=== PATIENT | female | born 1960 | race African-American/Black ===

== ENCOUNTER 2016-10-28 02:16 | Inpatient (IN) | payer OTHER ==
[~2016-10-28] VITALS: Ht 167.6 cm; Wt 116.1 kg
[~2016-10-28 02:16] MED LIST: AMITIZA24 MC1 PO; ASPIRIN EC81 M1 PO; CRESTOR40 M2 PO; DIOVAN320 M1 PO; FERROUS SULFAT325 M3 PO; FUROSEMIDE40 M1 PO; HYDRALAZINE HCL50 M1 PO; LABETALOL HCL300 M1 PO; LINZESS290 MC1 PO; METFORMIN HCL500 M2 PO; NOVOLOG FL100 UNIT/1 SC; SPIRONOLACTONE1 EACH PO; TRESIBA FL100 UNIT/1 SC; VITAMIN B122500 MC1; VITAMIN D31000 UNI1 PO
[2016-10-28] MEDS ORDERED: CARDURA1 M1 PO (06:58)
[2016-10-28] MEDS ORDERED: METOLAZONE5 M1 PO (07:00)
--- NOTE | 2016-10-28 07:13 | Operative Report ---
Operative/Inv Procedure Report Surgery Date: 10/28/16 Name of Procedure: 1. C3/4 ACDF with synthes interbody ZeroP PEEK cage, 16mm screws, autograft, allograft 2. exploration prior C4-7 anterior fusion Pre-Operative Diagnosis: C3/4 HNP with stenosis, myelopathy, prior C4-7 ant fusion Post-Operative Diagnosis: same Estimated Blood Loss: 75cc Surgeon/Welt Drawer: NASIMA CANNON,Poli Franklin MD Anesthesia: general endotracheal tube Monitors: neurophysiologic monitoring IV Fluids: 1.8L replaced with crystalloid Implants: synthes Urine Output: 205cc via gonsalves Drains: small CRISTIN Specimens: C3/4 disc material Complications: none Condition: stable Operative Indication: Pt 55yo female s/p prior work injury with C4-7 anterior cervical decompression and fusion several years ago now with progressive C3/4 HNP and recurrent central stenosis with clinical symptoms of recurrent myelopathy now presents for surgical discectomy and fusion of the adjacent symptomatic level. Operative/Procedure Note Note: Patient was taken the operating room. After appropriate patient identification, neurophysiologic monitoring leads were placed and baseline recordings were obtained. The patient underwent an fiberoptic intubation with a Nims tube with the neck in a neutral position. Following intubation. Monitoring was stable. The patient was positioned supine on the operating table with the neck gently extended on a donut and the shoulders retracted downward with tape. Following positioning, monitoring was rechecked and noted to be stable. Patient was given 1.5 g of IV vanco in preoperative prophylaxis. A Gonsalves catheter was sterilely inserted. DVT prophylaxis was utilized throughout the case. The right ventral neck was widely prepped and draped in usual sterile fashion using povoiodine solution. Previous approach was via the left neck and both vocal cords were noted to be equally mobile on preop laryngoscopy. A transverse linear skin incision was marked beginning in the midline and extending to the left a proximally 3 cm. The C-arm fluoroscope was sterilely draped in the field and we confirmed that the planned incision was overlying the C3/4 interspace. The skin was infiltrated with local anesthetic. Skin incision was made with a 10 blade knife dissection was carried down through the subcutaneous tissue with the Bovie to the platysma muscle. The platysma was elevated and divided. Subplatysmal planes were created rostrally and caudally to facilitate tissue mobilization. A large traversing vein was doubly ligated and divided. The medial aspect of the sternocleidomastoid muscle was identified. The overlying fascia was incised in a rostral caudal fashion. A combination of digital and blunt dissection was used medial to the sternocleidomastoid and lateral to the trachea and esophagus down to the prevertebral fascia. The carotid sheath was identified to be quite deep overlying the anterior spine and was retracted laterally under hand-held retractor. The prevertebral fascia was incised and swept off the ventral aspect of the vertebral bodies with a peanut. The previous fusion plate was cleared and inspected. The fusion was explored and noted to be solid. We verified the immediately more rostral disc space was C3/4 and the disc space was marked with the Bovie and the longus coli muscles were reflected bilaterally. Self- retaining retractors were placed beneath the muscle. Once the retractors were in position, the endotracheal cuff was deflated and slowly reinflated against the retractors to minimize tracheal wall pressure. An annulotomy of C3/4 was performed with a 15 blade knife and a superficial discectomy was done with small straight and angled curettes and pituitary rongeurs. The osteophytes were removed with a Leksell rongeur and the bone saved for subsequent arthrodesis to the back table. Murdock pins were placed in the midpoint of the C3 and C4 vertebral bodies in the disc space was gently distracted under direct and fluoroscopic guidance. Following distraction of the disc space, neurophysiologic monitoring was rechecked and noted to be stable. Discectomy at C3/4 was completed under the scope using combination of small straight and angled curettes and pituitary rongeurs. A large central disc herniation with significant compression of the thecal sac was appreciated with fragment of disc extending under the PLL. The posterior longitudinal ligament was sequentially divided and removed with a 2mm Kerrison punch until an excellent decompression of the underlying thecal sac was accomplished from proximal foramen to proximal foramen. Once removal of all the disc material, the dural sac appeared nicely decompressed. Once the decompression was completed, meticulous hemostasis was achieved using Surgifoam in the epidural space and a cottonoid too. All cartilaginous endplates were removed from C3 and C4 using combination of curettes and the Midas Zan drill to prepare them for arthrodesis. Following the decompression, neurophysiologic monitoring was rechecked and noted to be stable. We then proceeded to arthrodesis and placement of the instrumentation. After appropriate trials, a 8 mm Synthes peek zero profile cage was selected and filled with demineralized bone matrix and morselized autograft from the osteophytectomy and gently tamped the cage into the C3/4 disc space under direct and fluoroscopic guidance and countersunk one or two mm. Once the cage was in position, we proceeded with placement of the screws. The Murdock retractor was released compressing the cage between the respective vertebral bodies in the Murdock pins were removed. A small amount of bone bleeding was easily controlled with bone wax. 16 mm screws were placed in the C3 and C4 vertebral body after piercing the bone with an awl and placing self drilling, self tapping screws. The screws were finally tightened applying the locking mechanism at each location. Final x-rays were obtained and saved and showed excellent position of the interbody cage and instrumentation. The retractors were removed. Hand-held retractors were then placed back into the wound which was inspected and meticulous hemostasis is achieved prior to wound closure. A small CRISTIN drain was placed into the wound and secured to the skin with a 2-0 nylon suture. The platysma muscle was reapproximated with interrupted 3-0 Vicryl suture. Skin was closed in layers with interrupted 3-0 Vicryl suture in the dermis and a running 4-0 Vicryl subcutaneous stitch in the skin. The wound was cleaned and dried. Steri-Strips and a sterile occlusive dressing was placed. The patient was placed in a cervical collar. She was awakened in the operating room, extubated, and taken to PACU in stable condition. She was noted to be moving all 4 extremities at the completion of the case. All sponge needle and instrument counts are correct at the completion of procedure 3. Neurophysiologic monitoring was stable throughout the case. Findings: large central C3/4 HNP with compression of cord Discharge Disposition: PACU
--- NOTE | 2016-10-28 11:42 | Operative Report ---
Operative/Inv Procedure Report Surgery Date: 10/28/16 Name of Procedure: C3 4 anterior cervical discectomy and fusion C4 5 5 6 exploration of fusion Placement of intervertebral biomechanical device C3 4 Placement of anterior instrumentation Synthes zero-p Use of autograft use of allograft, use of fluoroscope, use of microscope Pre-Operative Diagnosis: Cervical myelopathy Post-Operative Diagnosis: Same Estimated Blood Loss: 50ml to 100ml Surgeon/Senior [id number] Developer: pete DEL REAL MD,DALLAS Castro Anesthesia: general endotracheal tube Operative/Procedure Note Note: After successful administration of general endotracheal anesthesia all lines tubes and monitors were placed by the anesthesia team the patient positioned supine with head gently extended arms tucked at her sides. The planned skin incision the right anterior neck using the fluoroscope in one of her neck creases. The patient was then prepped and draped in usual standard fashion, a # 15 blade was used to incise the right anterior neck this was taken down through the platysma with Bovie electrocautery. A large traversing vein was identified and isolated and tied off and then divided. We then dissected down lateral to the trachea and esophagus medial to the carotid sheath to palpate the old plate. We dissected cranially exposing the body of C3 the superior portion body of C4, we elevated the longus coli bilaterally. We inspected the old fusion teacher was solid and tried to place a Butte pin into the spacer however was difficult to place to the Butte pin through the locking mechanism hole. The [place]te pins placed the body of C3 to provide gentle in-line distraction. We then went into the disc space with a #15 blade performed a thorough discectomy using pituitaries curettes and Kerrison punches. We brought the microscope into the deep dissection in elevating the PLL, the PLL was elevated with a nerve hook and resected with Kerrison punch. The thecal sac was thoroughly decompressed. We used a high-speed drill to drill off any osteophytes saving the bone for autograft, the bony cartilage endplates were gently removed. After satisfied with the bony and ligamentous decompression we trialed an 8 mm space this this was the appropriate size. The space was placed, after was packed with autograft and D was bone matrix putty. An awl was used to all holes in the bodies of C3 and C4 and 16 mm screws were set, and locked with the locking mechanism. We then copiously irrigated with bacitracin irrigation remove the Butte pins waxed all the bone wax. Meticulous hemostasis was obtained. The wound was closed after a drain was left. A dry sterile dressing was applied the patient was taken to recovery room in stable condition. All needle counts sponge and instruments were correct.
[2016-10-28 12:43] LABS: ABSOLUTE BASOPHIL COUNT 0 /CUMM (0.0-0.2); ABSOLUTE EOSINOPHIL COUNT 0 /CUMM (0.0-0.7); ABSOLUTE GRANULOCYTE CT 6.2 /CUMM (1.4-6.5); ABSOLUTE LYMPH COUNT 0.8 /CUMM (1.2-3.4); ABSOLUTE MONOCYTE COUNT 0.1 /CUMM (0.10-0.60); BASOPHIL % 0.3 % (0.0-2.0); EOSINOPHIL % 0.1 % (0-5); HEMATOCRIT 29.1 % (37-47); MEAN CORPUSCULAR HGB 23.6 PG (27.0-31.0); MEAN CORPUSCULAR HGB CONC 32.4 G/DL (33.0-37.0); MEAN CORPUSCULAR VOLUME 72.9 FL (81.0-99.0); MEAN PLATELET VOLUME 8.8 FL (7.4-10.4); PLATELET COUNT 254 /CUMM (130-400); RBC DISTRIBUTION WIDTH 17.9 % (11.5-14.5); WHITE BLOOD CELL COUNT 7.1 /CUMM (4.8-10.8)
--- NOTE | 2016-10-28 12:58 | RADIOLOGY REPORT ---
EXAMINATION: XR PORTABLE CHEST CLINICAL INFORMATION: Sudden cardiorespiratory arrest. Evaluate for pneumothorax. COMPARISON: None TECHNIQUE: Portable frontal view of the chest was obtained. FINDINGS: Patient has a large body habitus. Lungs are well expanded and clear. An enteric tube is seen extending to the level of the diaphragm Cardiac silhouette is moderately enlarged and hilar vessels are prominent. However, no interstitial edema, focal consolidation or pleural effusion. No pneumothorax. Anterior spinal fusion hardware is noted. IMPRESSION: 1. Cardiomegaly and vascular congestion without pulmonary edema. 2. No evidence of pneumothorax.
--- NOTE | 2016-10-28 13:00 | RADIOLOGY REPORT ---
EXAMINATION: XR ABDOMEN CLINICAL INDICATION: Tube placement COMPARISON: None TECHNIQUE: AP view of the abdomen. FINDINGS: Large body habitus. The enteric tube terminates at the level of the diaphragm. Recommend advancing the tube further into the stomach. The right abdomen is excluded from the ulyli-av-ofac. There is mild gaseous distention of bowel within the visualized portion of the left abdomen; no obstructed bowel is identified. IMPRESSION: The enteric tube terminates at the level of the esophagogastric junction. Recommend advancing the tube further into the stomach.
[2016-10-28 13:03] LABS: GRANULOCYTE % 86.9 % (42.2-75.2)
--- NOTE | 2016-10-28 13:51 | RADIOLOGY REPORT ---
EXAMINATION: XR CERVICAL SPINE CLINICAL INFORMATION: Anterior cervical discectomy and fusion at C3-C4 COMPARISON: None TECHNIQUE: Intraoperative C-arm fluoroscopic imaging of cervical spine was utilized in a lateral projection. 2 spot fluoroscopy images are saved in the electronic picture archive. Fluoroscopy time: 0 minutes Dose: 0.792 mGy. FINDINGS: The patient is intubated within the operating room. The pre-existing C4-C7 anterior fusion plate-screws are suboptimally visualized due to overlying opacity from patient's shoulders. The patient has undergone discectomy and anterior fusion at C3-C4 with placement of a zero profile anterior fusion device. The visualized cervical vertebra have normal height and alignment. IMPRESSION: Intraoperative fluoroscopy utilized at time of discectomy-fusion at C3-C4.
--- NOTE | 2016-10-28 14:00 | NUR ---
RECEIVED PATIENT @ 1327 FROM PACU ON 100% NONREBREATHER MASK SATTING 100% WITH CLEAR/DIMINISHED BREATHSOUNDS THROUGHOUT AND NO DISTRESS. PATIENT AWAKES TO VERBAL STIMULI, KNOWS WHO/WHERE SHE IS, CONFUSED OF DATE AND FOLLOWS COMMANDS/MOVES ALL EXTREMETIES, DENIES PAIN/NUMBNESS/TINGLING/HEADACHE. NSR-ST ON THE CARDIAC MONTIOR 90S-100S, QDJ=[id number] AND UP TO 190S. A-LINE TO L WRIST CORRELATING WELL AND SITE IS CDI. DRESSING TO FRONT OF NECK IS CDI AND NECK BRACE TO REMAIN ON. PATIENT'S ABDOMEN IS SOFT/NONTENDER, +BS. NPO UNTIL SWALLOW EVAL TOMORROW, HX OF TROUBLE SWALLOWING. CRISTIN DRAIN TO RIGHT SIDE OF NECK W/ BLOODY DRAINAGE. SKIN OTHERWISE INTACT. POSITIVE PEDAL PULSES BILATERALLY. WHEAT IN PLACE DRAINING CLEAR/STRAW URINE. NGT TO R NARE TO LWS W/ SOME BLOODY DRAINAGE. PATIENT DENIES OTHER COMPLAINTS.
--- NOTE | 2016-10-28 14:14 | PN- Neurosurgical ---
Subjective Subjective: The patient was seen postoperatively. In the recovery room the patient's desaturated and became bradycardic and then unresponsive. A code was called and the patient was resuscitated. The patient is now being seen in the ICU. She is sleepy but arousable and able to follow commands but minimally verbal. She denies any complaints at the current time. Objective Vital Signs and I&Os Intake & Output 10/28 0000 10/27 0000 Intake Total Output Total Balance Patient 247 lb Weight Most recent vital signs: Blood pressure 150/80, pulse 92, temperature 97.9, O2 sats rate and 97% on nonrebreather I's and O's: 2600 ML's in of lactated Ringer's/855 ML's of urine via Hernadez catheter/CRISTIN 5 mL/EBL less than 100 Laboratory Tests 10/28 10/28 1320 1225 Blood Gas pH (7.35 - 7.45 PH) 7.39 pCO2 (35 - 45 TORR) 42 pO2 (80 - 100 TORR) 101 H HCO3 (21 - 28 MEQ/L) 25 ABG O2 Sat (Measured) (>96.0 %) 97.0 Carboxyhemoglobin (1.5 - 5.0 %) 0.3 L O2 Concentration % 100% O2 Delivery Method KATIE MASK Chemistry Sodium (137 - 145 mmol/L) 140 Potassium (3.5 - 5.1 mmol/L) 4.0 Chloride (98 - 107 mmol/L) 108 H Carbon Dioxide (22 - 30 mmol/L) 21 L Anion Gap (5 - 16) 11 BUN (7 - 17 mg/dL) 27 H Creatinine (0.5 - 1.0 mg/dL) 1.1 H Estimated GFR (>60 ml/min) 52 L BUN/Creatinine Ratio (7 - 25 %) 24.5 Lactic Acid (0.7 - 2.1 mmol/L) 2.5 H Magnesium (1.6 - 2.3 mg/dL) 1.6 Troponin I (< 0.11 ng/ml) 0.02 Hematology CBC w Diff NO MAN DIFF REQ WBC (4.8 - 10.8 /CUMM) 7.1 RBC (4.20 - 5.40 /CUMM) 4.00 L Hgb (12.0 - 16.0 G/DL) 9.4 L Hct (37 - 47 %) 29.1 L MCV (81.0 - 99.0 FL) 72.9 L MCH (27.0 - 31.0 PG) 23.6 L RDW (11.5 - 14.5 %) 17.9 H Plt Count (130 - 400 /CUMM) 254 MPV (7.4 - 10.4 FL) 8.8 Gran % (42.2 - 75.2 %) 86.9 H Lymphocytes % (20.5 - 51.1 %) 10.9 L Monocytes % (1.7 - 9.3 %) 1.8 Eosinophils % (0 - 5 %) 0.1 Basophils % (0.0 - 2.0 %) 0.3 Absolute Granulocytes (1.4 - 6.5 /CUMM) 6.2 Absolute Lymphocytes (1.2 - 3.4 /CUMM) 0.8 L Absolute Monocytes (0.10 - 0.60 /CUMM) 0.1 L Absolute Eosinophils (0.0 - 0.7 /CUMM) 0 Absolute Basophils (0.0 - 0.2 /CUMM) 0 PUBS MCHC (33.0 - 37.0 G/DL) 32.4 L Miscellaneous Phlebotomy Draw Site GENESEE 10/28 1215 Blood Gas pH (7.35 - 7.45 PH) 7.46 H pCO2 (35 - 45 TORR) 31 L pO2 (80 - 100 TORR) 191 H HCO3 (21 - 28 MEQ/L) 22 ABG O2 Sat (Measured) (>96.0 %) 99.0 Carboxyhemoglobin (1.5 - 5.0 %) 0.3 L O2 Concentration % 100% O2 Delivery Method NRB Miscellaneous Phlebotomy Draw Site LEFT A LINE Postoperative chest x-ray showing cardiomegaly and pulmonary congestion without CHF or pneumothorax Postoperative EKG showing some changes that were nontender prior to surgery. Physical Exam: Gen.: Sleepy but arousable and in no obvious distress Skin: Warm and dry Neck: In hard cervical collar. The surgical dressing is clean, dry, and intact. His CRISTIN 1 holding suction with serous sinus drainage in the bulb. There is no signs of gross hematoma or significant edema. Neuro: Patient is sleepy but arousable, she is minimally verbal and follows commands. She is able to move all 4 extremities however bilateral upper extremities are significantly weakened. Bilateral lower extremities are warm without calf tenderness. Cardiac: S1 and S2 regular Pulmonary: Bilateral breath sounds are equal and significant decreased at bases with upper respiratory congestion and crackles Assessment/Plan Assessment/Plan Assessment: 55-year-old female status post ACD fusion C3-C4. Postoperatively the patient's having cardiac and respiratory issues which required the patient to be coded and resuscitated. The patient seemingly has a nonfocal exam bouts a full exam is limited due to patient's level of alertness at the current time. Plan: Follow-up additional x-ray studies, EKG, and x-ray Keep nothing by mouth with IV hydration at the current time CRISTIN to self suction and Hernadez to gravity with strict I's and O's Every hour neuro exams with vital signs GI and DVT prophylaxis with Alps only no subcutaneous heparin Postoperative prophylactic antibiotics PRN pain medications, antiemetics, antipyretics Tight glycemic control will defer to medical team with regards to restarting patient's home medications When patient is able she can be out of bed but needs to wear hard cervical collar Core Measures/Miscellaneous Hernadez Catheter Date In: 10/28/16 Still Needed? Yes Venous Thromboembolism VTE Risk Factors: Age > 40, Obesity, Surgery VTE Contraindications: Severe Spine Trauma x4 wk No Pharm VTE Prophylaxis D/T: Surgical Contraindication VTE Diagnosis: No Beta Phan Is Beta Phan a Home Med? Yes If Yes, Was This Ordered Today? No (low bp) Antibiotics Is Patient on Antibiotics? Yes If Yes: prophylaxis
--- NOTE | 2016-10-28 15:35 | Cons- CRCU ---
See Addendum General Information and HPI Allergies/Medications Allergies: Coded Allergies: Penicillins (Severe, DIFFICULTY BREATHING 10/27/16) acetaminophen (From PERCOCET) (HALLUCINATIONS 10/27/16) oxycodone (From PERCOCET) (HALLUCINATIONS 10/27/16) Uncoded Allergies: CONTRAST DYE (ALTERED MENTAL STATUS 10/27/16) Home Med List: Aspirin (Ecotrin*) 81 MG TABLET.DR 1 TAB PO DAILY PROPHO (Reported) Cholecalciferol (Vitamin D3) (Vitamin D3) 1,000 UNIT CAPSULE 1 CAP PO BID PROPHO (Reported) Cyanocobalamin (Vitamin B-12) (Vitamin B12) 2,500 MCG TABLET PROPHO (Reported) Doxazosin (Cardura) 1 MG TABLET 1 TAB PO QPM bladder (Reported) Ferrous Sulfate 325 MG (65 MG IRON) TABLET 1 TAB PO 3X PER WEEK ANEMIA ( Reported) Furosemide 40 MG TABLET 3 TAB PO DAILY HTN (Reported) Hydralazine HCl 50 MG TABLET 1.5 TAB PO BID HTN (Reported) Insulin Aspart, Recombinant (Novolog Flexpen) 100 UNIT/ML INSULN.PEN 36 UNITS SC TIDAC DIABETES (Reported) Insulin Degludec (Tresiba Flextouch U-100) 100 UNIT/ML (3 ML) INSULN.PEN 80 UNITS SC DAILY DM II (Reported) Labetalol HCl 300 MG TABLET 2 TAB PO BID HTN (Reported) Linaclotide (Linzess) 290 MCG CAPSULE 1 CAP PO AFTER DINNER CONSTIPATION ( Reported) Metformin HCl (Metformin HCl ER) 500 MG TAB.ER.24 1 TAB PO BID DIABETES ( Reported) Metolazone 5 MG TABLET 1 TAB PO EOD HTN (Reported) Rosuvastatin Calcium (Crestor) 40 MG TABLET 1 TAB PO DAILY CHOLESTEROL ( Reported) Spironolact/Hydrochlorothiazid (Spironolactone-Hctz 25-25 Tab) 25 MG-25 MG TABLET 2 TAB PO DAILY HTN (Reported) Valsartan (Diovan) 320 MG TABLET 1 TAB PO DAILY HTN (Reported) Past History Medical History Cardiovascular: hypertension Respiratory: asthma Endocrine: diabetes Surgical History Surgical History: laminectomy (3 YEARS AGO) Psychosocial History Smoking Status: Unknown If Ever Smoked Employment History 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
[2016-10-28 16:00] VITALS: BP 180/90
--- NOTE | 2016-10-28 16:55 | PN- Neurosurgical ---
Subjective Subjective: Pt resting comfortably in CRCU. Reports nausea, denies CP, SOB, pain or N/T/W of extremities. Objective Vital Signs and I&Os Intake & Output 10/28 1600 10/28 0810/28 0000 10/27 1600 10/27 0810/27 0000 Intake Total Output Total Balance Patient 112.037 kg Weight Physical Exam: Pt is awake and alert in bed. speech clear, fluent c/o nausea Incision is c,d,i, neck is soft and NT, no palpable collection or fullness CRISTIN with scant output since OR Moving all 4 extrem to command and with at least 4/5 power throughout BP elevated 172/80, pulse 120 sinus tach gonsalves in place, making adequate urine Current Medications: Current Medications Sig/Karl Start time Last Medication Dose Route Stop Time Status Admin Acetaminophen 1,000 MG .STK-MED ONE 10/28 06 DC IV 10/28 06 Fentanyl Citrate 250 MCG .STK-MED ONE 10/28 638 DC IM 10/28 0640 Hydromorphone HCl 2 MG .STK-MED ONE 10/28 0638 DC IM 10/28 0639 Labetalol HCl 20 MG ONCE ONE 10/28 1630 DC IV 10/28 1631 Midazolam HCl 2 MG .STK-MED ONE 10/28 0639 DC IM 10/28 0640 Remifentanil 5 MG .STK-MED ONE 10/28 0734 DC IV 10/28 0735 Scopolamine HBr 0 .STK-MED ONE 10/28 0725 DC TOP Trimethobenzamide HCl 200 MG 4 TIMES/DAY 10/28 1800 AC IM Trimethobenzamide HCl 200 MG TID 10/28 1632 AC IM Vancomycin HCl 1,000 MG DAILY 10/29 1000 UNir Sodium Chloride 250 ML IV 10/29 1059 Vancomycin HCl 1,500 MG ONCE ONE 10/28 0730 DC Sodium Chloride 250 ML IV 10/28 0859 Results Last 48 Hours of Labs: Laboratory Tests 10/28 10/28 1320 1225 Blood Gas pH (7.35 - 7.45 PH) 7.39 pCO2 (35 - 45 TORR) 42 pO2 (80 - 100 TORR) 101 H HCO3 (21 - 28 MEQ/L) 25 ABG O2 Sat (Measured) (>96.0 %) 97.0 Carboxyhemoglobin (1.5 - 5.0 %) 0.3 L O2 Concentration % 100% O2 Delivery Method KATIE MASK Chemistry Sodium (137 - 145 mmol/L) 140 Potassium (3.5 - 5.1 mmol/L) 4.0 Chloride (98 - 107 mmol/L) 108 H Carbon Dioxide (22 - 30 mmol/L) 21 L Anion Gap (5 - 16) 11 BUN (7 - 17 mg/dL) 27 H Creatinine (0.5 - 1.0 mg/dL) 1.1 H Estimated GFR (>60 ml/min) 52 L BUN/Creatinine Ratio (7 - 25 %) 24.5 Lactic Acid (0.7 - 2.1 mmol/L) 2.5 H Magnesium (1.6 - 2.3 mg/dL) 1.6 Troponin I (< 0.11 ng/ml) 0.02 Hematology CBC w Diff NO MAN DIFF REQ WBC (4.8 - 10.8 /CUMM) 7.1 RBC (4.20 - 5.40 /CUMM) 4.00 L Hgb (12.0 - 16.0 G/DL) 9.4 L Hct (37 - 47 %) 29.1 L MCV (81.0 - 99.0 FL) 72.9 L MCH (27.0 - 31.0 PG) 23.6 L RDW (11.5 - 14.5 %) 17.9 H Plt Count (130 - 400 /CUMM) 254 MPV (7.4 - 10.4 FL) 8.8 Gran % (42.2 - 75.2 %) 86.9 H Lymphocytes % (20.5 - 51.1 %) 10.9 L Monocytes % (1.7 - 9.3 %) 1.8 Eosinophils % (0 - 5 %) 0.1 Basophils % (0.0 - 2.0 %) 0.3 Absolute Granulocytes (1.4 - 6.5 /CUMM) 6.2 Absolute Lymphocytes (1.2 - 3.4 /CUMM) 0.8 L Absolute Monocytes (0.10 - 0.60 /CUMM) 0.1 L Absolute Eosinophils (0.0 - 0.7 /CUMM) 0 Absolute Basophils (0.0 - 0.2 /CUMM) 0 PUBS MCHC (33.0 - 37.0 G/DL) 32.4 L Miscellaneous Phlebotomy Draw Site [place] 10/28 1215 Blood Gas pH (7.35 - 7.45 PH) 7.46 H pCO2 (35 - 45 TORR) 31 L pO2 (80 - 100 TORR) 191 H HCO3 (21 - 28 MEQ/L) 22 ABG O2 Sat (Measured) (>96.0 %) 99.0 Carboxyhemoglobin (1.5 - 5.0 %) 0.3 L O2 Concentration % 100% O2 Delivery Method NRB Miscellaneous Phlebotomy Draw Site LEFT A LINE Recent Imaging Studies: EXAMINATION: XR PORTABLE CHEST CLINICAL INFORMATION: Sudden cardiorespiratory arrest. Evaluate for pneumothorax. COMPARISON: None TECHNIQUE: Portable frontal view of the chest was obtained. FINDINGS: Patient has a large body habitus. Lungs are well expanded and clear. An enteric tube is seen extending to the level of the diaphragm Cardiac silhouette is moderately enlarged and hilar vessels are prominent. However, no interstitial edema, focal consolidation or pleural effusion. No pneumothorax. Anterior spinal fusion hardware is noted. IMPRESSION: 1. Cardiomegaly and vascular congestion without pulmonary edema. 2. No evidence of pneumothorax. Assessment/Plan Assessment/Plan Pt s/p uncomplicated C3/4 ACDF, exploration of prior fusion with hemodynamic instability postop in PACU that responded to medical intervention and now with residual hypertension, tachycardia. Etiology of the acute decline not entirely clear. Pt without evidence of significant cardiac event with stable EKG c/w preop and neg early troponin. Pt currently with good O2 sats and breathing comfortably on own. While PE can not be entirely excluded in light of clinical events postop, seems unlikely. If pt stable, could consider spiral chest CT if clinically appropriate per medical ICU team. Pt neurologically intact without evidence of a [employer] event so would not pursue head CT at this time. From neurosurgical perspective, would: -cont CRISTIN and consider dc in am if output less than 15cc per shift -cont vanco until drain out -keep NPO tonight and will assess swallow in am with 3oz bedside fluid challenge. If swallows without dysphagia, can advance to soft, mechanical diet -tight glucose control with ISS -keep SBP less than or equal to 160 -keep HOB upright -close neurologic evaluation -collar to be worn at all times I appreciate medical service input and care. I have discussed all events with patient's daughter, Yuliet, by phone and have updated her on her mom's status. Core Measures/Miscellaneous Gonsalves Catheter Date In: 10/28/16 Venous Thromboembolism VTE Risk Factors: Age > 40, Obesity, Surgery VTE Contraindications: Severe Spine Trauma x4 wk No Pharm VTE Prophylaxis D/T: Surgical Contraindication VTE Diagnosis: No Beta Phan Is Beta Phan a Home Med? Yes If Yes, Was This Ordered Today? No (low bp) Antibiotics Is Patient on Antibiotics? Yes If Yes: prophylaxis
--- NOTE | 2016-10-28 17:53 | History & Physical ---
General Information and HPI MD Statement: I have seen and personally examined YELENA LONDON and documented this H&P. The patient is a 55 year old F who presented with a patient stated chief complaint of []. Source of Information: family History of Present Illness: She is 55-year-old woman with past medical history of hypertension, hyperlipidemia, diabetes mellitus, obstructive sleep apnea on CPAP and gastroparesis. She also has history of prior work injury with C4-7 anterior cervical decompression and fusion several years ago. Patient is status post C3 4 anterior cervical discectomy and fusion by neurosurgeon, Dr. Haynes today. She was brought in PACU in stable condition. At 11:55 AM her oxygen saturations dropped down to 60% and her heart rate down to 20. Blood pressure was 87/42 and she went into asystole. Code 3 was called and CPR was started at 12 PM. She was given atropine 4 mg 1. ROSC was achieved after about 2 min and CPR was discontinued. She was also given Narcan 0.4 mg IV Esmolol 50 mg IV 1 and hydralazine 10 mg was given. Blood pressure came down to 195/88 heartrate 97. Her ABGs were pH 7.46, PCO2 31 and PO2 191 100% nonrebreather mask. NG tube was also placed in right nostril. She was transferred in ICU for closer monitoring. Upon coming to ICU her temperature was 97, heart rate 100, respiratory 10, blood pressure 168/88 and oxygen saturation 97% on 100% nonrebreather mask. She was given labetalol 20 mg IV 1. Upon my eval pt was in no apperant distress. She was responsive and following commands. She was denying any chest pain, discomfort at that moment. She was able to move all her extremities. Collateral information was obtained from family. Patient is nonsmoker. No history of drinking alcohol or illicit drug use. 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 Lives with her daughter. Allergies/Medications Allergies: Coded Allergies: Penicillins (Severe, DIFFICULTY BREATHING 10/27/16) acetaminophen (From PERCOCET) (HALLUCINATIONS 10/27/16) oxycodone (From PERCOCET) (HALLUCINATIONS 10/27/16) Uncoded Allergies: MRI DYE (ALTERED MENTAL STATUS 10/29/16) Home Med list Cholecalciferol (Vitamin D3) (Vitamin D3) 1,000 UNIT CAPSULE 1 CAP PO BID PROPHO (Reported) Cyanocobalamin (Vitamin B-12) (Vitamin B12) 2,500 MCG TABLET PROPHO (Reported) Doxazosin (Cardura) 1 MG TABLET 1 TAB PO QPM bladder (Reported) Ferrous Sulfate 325 MG (65 MG IRON) TABLET 1 TAB PO 3X PER WEEK ANEMIA ( Reported) Furosemide 40 MG TABLET 3 TAB PO DAILY HTN (Reported) Hydralazine HCl 50 MG TABLET 1.5 TAB PO BID HTN (Reported) Insulin Aspart, Recombinant (Novolog Flexpen) 100 UNIT/ML INSULN.PEN 36 UNITS SC TIDAC DIABETES (Reported) Insulin Degludec (Tresiba Flextouch U-100) 100 UNIT/ML (3 ML) INSULN.PEN 80 UNITS SC DAILY DM II (Reported) Labetalol HCl 300 MG TABLET 2 TAB PO BID HTN (Reported) Linaclotide (Linzess) 290 MCG CAPSULE 1 CAP PO AFTER DINNER CONSTIPATION ( Reported) Metformin HCl (Metformin HCl ER) 500 MG TAB.ER.24 1 TAB PO BID DIABETES ( Reported) Metolazone 5 MG TABLET 1 TAB PO EOD HTN (Reported) Rosuvastatin Calcium (Crestor) 40 MG TABLET 1 TAB PO DAILY CHOLESTEROL ( Reported) Spironolact/Hydrochlorothiazid (Spironolactone-Hctz 25-25 Tab) 25 MG-25 MG TABLET 2 TAB PO DAILY HTN (Reported) Valsartan (Diovan) 320 MG TABLET 1 TAB PO DAILY HTN (Reported) Past History Medical History Blood Transfusion Hx: No Cardiovascular: hypertension Respiratory: asthma Gastrointestinal: GERD, TROUBLE SWALLOWING Musculoskeletal: disk herniation, fracture Psychiatric: anxiety Endocrine: diabetes History of MRSA: No History of VRE: No History of CDIFF: No Isolation History: Standard Surgical History Surgical History: laminectomy (3 YEARS AGO) Past Family/Social History Psychosocial History Where do you live? Home Who Do You Live With? 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 Exam & Diagnostic Data Last 24 Hrs of Vital Signs/I&O Vital Signs Date Time Temp Pulse Resp B/P B/P Pulse O2 O2 Flow FiO2 Mean Ox Delivery Rate 10/28 1906 90 187/80 10/28 1646 105 180/70 10/28 1606 100 Non 100% ReBreather Physical Exam General Appearance Alert, No Acute Distress HEENT dry mucous membranes Neck cervical collor, drain in place, NG tube Lungs Clear to Auscultation Abdomen Normal Bowel Sounds, Soft, No Tenderness Neurological moving all ext Extremities No Edema Last 24 Hrs of Labs/Danny: Laboratory Tests 10/28/16 1700: Urine Opiates Screen 146.00, Methadone Screen < 40, Barbiturate Screen < 60, Ur Phencyclidine Scrn < 6.00, Amphetamines Screen < 100, U Benzodiazepines Scrn 374 H, Urine Cocaine Screen < 50, Urine Cannabis Screen < 5.00, Urine Color YEL, Urine Clarity CLEAR, Urine pH 6.0, Ur Specific [place] 1.015, Urine Protein 30 H, Urine Ketones NEG, Urine Nitrite NEG, Urine Bilirubin NEG, Urine Urobilinogen 0.2, Ur Leukocyte Esterase NEG, Ur Microscopic SEDIMENT EXAMINED, Urine RBC 25- 50 H, Urine WBC RARE, Ur Epithelial Cells RARE, Urine Bacteria RARE H, Urine Hemoglobin MOD H, Urine Glucose 500 H 10/28/16 1645: Lactic Acid 1.8 10/28/16 1320: pH 7.39, pCO2 42, pO2 101 H, HCO3 25, ABG O2 Sat (Measured) 97.0, Carboxyhemoglobin 0.3 L, O2 Concentration % 100%, O2 Delivery Method KATIE MASK, Phlebotomy Draw Site [place] 10/28/16 1225: Anion Gap 11, Estimated GFR 52 L, BUN/Creatinine Ratio 24.5, Lactic Acid 2.5 H , Magnesium 1.6, Troponin I 0.02, CBC w Diff NO MAN DIFF REQ, RBC 4.00 L, MCV 72.9 L, MCH 23.6 L, RDW 17.9 H, MPV 8.8, Gran % 86.9 H, Lymphocytes % 10.9 L, Monocytes % 1.8, Eosinophils % 0.1, Basophils % 0.3, Absolute Granulocytes 6.2, Absolute Lymphocytes 0.8 L, Absolute Monocytes 0.1 L, Absolute Eosinophils 0, Absolute Basophils 0, PUBS MCHC 32.4 L 10/28/16 1215: pH 7.46 H, pCO2 31 L, pO2 191 H, HCO3 22, ABG O2 Sat (Measured) 99.0, Carboxyhemoglobin 0.3 L, O2 Concentration % 100%, O2 Delivery Method NRB, Phlebotomy Draw Site LEFT A LINE Microbiology 10/28 1345 UPPER RESP: Surveillance Culture - RECD 10/28 1345 GI: Surveillance Culture - RECD 10/28 0800 URINE ROUT: Urine Culture - RECD Diagnostic Data EKG Results Sinus rhythm. Acute ST-T wave changes QTc 489 CXR Results 1. Cardiomegaly and vascular congestion without pulmonary edema. 2. No evidence of pneumothorax. Assessment/Plan Assessment: She is 55-year-old woman with past medical history of hypertension, hyperlipidemia, diabetes mellitus, obstructive sleep apnea on CPAP and gastroparesis. She also has history of prior work injury with C4-7 anterior cervical decompression and fusion several years ago. PROBLEM LIST 1. Cardiac arrest status post CPR. Differentials could be PE vs ? contributors could be Sleep apnea vs anesthesia effect 2. Cervical Myelopathy s/o cervical discectomy and fusion today 3. Hypertension 4. History of diabetes 5. History of sleep apnea on CPAP at home PLAN * ICU monitoring * Keep SBP less than or equal to 160 * If blood pressure rises can give her labetalol or hydralazine. * Aspiration precautions * Vancomycin per surgery recommendations * Keep HOB elevated * Keep patient nothing by mouth for now * Swallow evaluation tomorrow * Further Post OP and CRISTIN drain care per surgery * Nothing by mouth sliding scale * CTA chest. Only allergic reaction patient had with contrast dye was disorientation. Patient denies having any rash or throat swelling. would do it without premedication * Cardio consult appreciated * Serial EKGs and troponins * ECHO * Keep holding all her home medications for now * Alps for DVT prophylaxis * Patient is full code As Ranked By This Provider Problem List: 1. NSTEMI (non-ST elevated myocardial infarction) 2. S/P discectomy Core Measures/Miscellaneous Acute Coronary Syndrome ACS Diagnosis: No Cerebrovascular Accident CVA/TIA Diagnosis: No Congestive Heart Failure CHF Diagnosis: No VTE (View Protocol) VTE Risk Factors: Acute medical illness, Age > 40 [facility] prophylaxis d/t: No contraindications No VTE Pharm Prophylaxis d/t: Surgical contraindication VTE Diagnosis: Yes VTE Type: NONE VTE Confirmed by (Test): NONE Sepsis (View Protocol) Severe Sepsis Present: No Septic Shock Septic Shock Present: No Miscellaneous Documentation Attending Case Discussed With: Dr. Hernandez Primary Care Physician: FERNIE GRACE MD Patient sees these Specialists cardio, pulm Level of Patient Care: Critical Care (CRI) Consults Needed: Consulting Specialty: Cardiology
--- NOTE | 2016-10-28 19:11 | Cons- Cardiology ---
General Information and HPI Consulting Request Date of Consult: 10/28/16 Requested By: NASIMA CANNON,DALL[place] Castro Reason for Consult: Status post cardiac arrest postoperatively in a 55-year-old female Source of Information: patient, old records Exam Limitations: no limitations History of Present Illness: The patient is a 55-year-old -[place] female who just underwent cervical spine surgery. The surgery was apparently uncomplicated but in the recovery room the patient was noted to be bradycardic to the 20s and also the blood pressure dropped to 87/42. At that point, which was 11:55 AM, a code 3 was called and CPR was started shortly after. Atropine was given, Narcan was given and the blood pressure and pulse were regained. The patient did not require intubation. Subsequently the blood pressure became hypertensive to 220/96 and she became tachycardic. Hydralazine was then given. Subsequently Zofran and Lasix were given and the patient was eventually transferred to intensive care unit. In the intensive care unit she was responsive and her blood pressure was still elevated and she has been given additional medication including labetalol. Her postoperative electrocardiogram was similar to preoperative and showed significant left ventricular hypertrophy. The patient's underlying medical issues include diabetes with retinopathy, severe hypertension requiring multiple outpatient medications. These include Diovan 325 mg daily Lasix 120 mg daily, hydralazine 50 mg twice daily, labetalol 300 mg twice daily, Spironolactone/hydrochlorothiazide daily. She also takes Crestor, aspirin, and insulin preparations. The patient is followed by Dr.Oen Brar from cardiology in [place]. When I spoke to the patient she denied any history of coronary artery disease or any chest pains on exertion etc. She states her blood pressures usually reasonably controlled at home and she is compliant with her complicated medical regimen. Allergies/Medications Allergies: Coded Allergies: Penicillins (Severe, DIFFICULTY BREATHING 10/27/16) acetaminophen (From PERCOCET) (HALLUCINATIONS 10/27/16) oxycodone (From PERCOCET) (HALLUCINATIONS 10/27/16) Uncoded Allergies: MRI DYE (ALTERED MENTAL STATUS 10/29/16) Home Med List: Aspirin (Ecotrin*) 81 MG TABLET.DR 1 TAB PO DAILY PROPHO (Reported) Cholecalciferol (Vitamin D3) (Vitamin D3) 1,000 UNIT CAPSULE 1 CAP PO BID PROPHO (Reported) Cyanocobalamin (Vitamin B-12) (Vitamin B12) 2,500 MCG TABLET PROPHO (Reported) Doxazosin (Cardura) 1 MG TABLET 1 TAB PO QPM bladder (Reported) Ferrous Sulfate 325 MG (65 MG IRON) TABLET 1 TAB PO 3X PER WEEK ANEMIA ( Reported) Furosemide 40 MG TABLET 3 TAB PO DAILY HTN (Reported) Hydralazine HCl 50 MG TABLET 1.5 TAB PO BID HTN (Reported) Insulin Aspart, Recombinant (Novolog Flexpen) 100 UNIT/ML INSULN.PEN 36 UNITS SC TIDAC DIABETES (Reported) Insulin Degludec (Tresiba Flextouch U-100) 100 UNIT/ML (3 ML) INSULN.PEN 80 UNITS SC DAILY DM II (Reported) Labetalol HCl 300 MG TABLET 2 TAB PO BID HTN (Reported) Linaclotide (Linzess) 290 MCG CAPSULE 1 CAP PO AFTER DINNER CONSTIPATION ( Reported) Metformin HCl (Metformin HCl ER) 500 MG TAB.ER.24 1 TAB PO BID DIABETES ( Reported) Metolazone 5 MG TABLET 1 TAB PO EOD HTN (Reported) Rosuvastatin Calcium (Crestor) 40 MG TABLET 1 TAB PO DAILY CHOLESTEROL ( Reported) Spironolact/Hydrochlorothiazid (Spironolactone-Hctz 25-25 Tab) 25 MG-25 MG TABLET 2 TAB PO DAILY HTN (Reported) Valsartan (Diovan) 320 MG TABLET 1 TAB PO DAILY HTN (Reported) Current Medications: Current Medications Sig/Karl Start time Last Medication Dose Route Stop Time Status Admin Acetaminophen 1,000 MG Q6P PRN 10/28 1700 UNVr IV Acetaminophen 1,000 MG .STK-MED ONE 10/28 0639 DC IV 10/28 0640 Fentanyl Citrate 100 MCG .STK-MED ONE 10/28 1007 DC IM 10/28 1008 Fentanyl Citrate 250 MCG .STK-MED ONE 10/28 0639 DC IM 10/28 0640 Hydromorphone HCl 2 MG .STK-MED ONE 10/28 0638 DC IM 10/28 0639 Insulin Human Regular 0 Q6 10/28 1800 UNVr SC Labetalol HCl 20 MG ONCE ONE 10/28 1630 DC 10/28 IV 10/28 1631 1646 Magnesium Sulfate 1 GM ONCE ONE 10/28 1815 UNVr Dextrose/Water 100 ML IV 10/28 2214 Metoclopramide HCl 10 MG Q6P PRN 10/28 1715 UNVr 10/28 IV 1726 Midazolam HCl 2 MG .STK-MED ONE 10/28 0639 DC IM 10/28 0640 Morphine Sulfate 2 MG Q4P PRN 10/28 1700 UNVr IV Remifentanil 5 MG .STK-MED ONE 10/28 0734 DC IV 10/28 0735 Scopolamine HBr 0 .STK-MED ONE 10/28 0725 DC TOP Trimethobenzamide HCl 200 MG 4 TIMES/DAY 10/28 1800 AC IM Trimethobenzamide HCl 200 MG TID 10/28 1632 AC 10/28 IM 1647 Vancomycin HCl 1,000 MG DAILY 10/29 1000 r Sodium Chloride 250 ML IV Vancomycin HCl 1,500 MG ONCE ONE 10/28 0730 DC 10/28 Sodium Chloride 250 ML IV 10/28 0859 0800 Review of Systems Review of Systems: Not applicable Past History Travel History Traveled to [place] past 21 day No (she find out exactly what L bhardwaj) Medical History Blood Transfusion Hx: No Cardiovascular: hypertension Respiratory: asthma Gastrointestinal: GERD, TROUBLE SWALLOWING Musculoskeletal: disk herniation, fracture Psychiatric: anxiety Endocrine: diabetes Surgical History Surgical History: laminectomy (3 YEARS AGO) Psychosocial History Where Do You Live? 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 HEENT exam limited by hardware Chest is clear to limited exam Heart regular rhythm and no murmurs Abdomen nontender Extremities no edema Labs/Danny Results: Laboratory Tests 10/28 10/28 10/28 1700 1645 1320 Blood Gas pH (7.35 - 7.45 PH) 7.39 pCO2 (35 - 45 TORR) 42 pO2 (80 - 100 TORR) 101 H HCO3 (21 - 28 MEQ/L) 25 ABG O2 Sat (Measured) (>96.0 %) 97.0 Carboxyhemoglobin (1.5 - 5.0 %) 0.3 L O2 Concentration % 100% O2 Delivery Method KATIE MASK Chemistry Lactic Acid (0.7 - 2.1 mmol/L) 1.8 Miscellaneous Phlebotomy Draw Site ADOLFO Toxicology Urine Opiates Screen (>2000 NG/ML) 146.00 Methadone Screen (>300 NG/ML) < 40 Barbiturate Screen (>200 NG/ML) < 60 Ur Phencyclidine Scrn (>25 NG/ML) < 6.00 Amphetamines Screen (>1000 NG/ML) < 100 U Benzodiazepines Scrn (>200 NG/ML) 374 H Urine Cocaine Screen (>300 NG/ML) < 50 Urine Cannabis Screen (>50 NG/ML) < 5.00 Urines Urine Color (YEL,AMB,STR) YEL Urine Clarity (CLEAR) CLEAR Urine pH (5.0 - 8.0) 6.0 Ur Specific [place] (1.001 - 1.035) 1.015 Urine Protein (NEG,<30 MG/DL) 30 H Urine Ketones (NEG) NEG Urine Nitrite (NEG) NEG Urine Bilirubin (NEG) NEG Urine Urobilinogen (0.1 - 1.0 EU/dl) 0.2 Ur Leukocyte Esterase (NEG) NEG Ur Microscopic SEDIMENT EXAMINED Urine RBC (0 - 5 /HPF) 25-50 H Urine WBC (0 - 2 /HPF) RARE Ur Epithelial Cells (NONE,FEW) RARE Urine Bacteria (NEG/NONE) RARE H Urine Hemoglobin (NEG) MOD H Urine Glucose (N MG/DL) 500 H 10/28 10/28 1225 1215 Blood Gas pH (7.35 - 7.45 PH) 7.46 H pCO2 (35 - 45 TORR) 31 L pO2 (80 - 100 TORR) 191 H HCO3 (21 - 28 MEQ/L) 22 ABG O2 Sat (Measured) (>96.0 %) 99.0 Carboxyhemoglobin (1.5 - 5.0 %) 0.3 L O2 Concentration % 100% O2 Delivery Method NRB Chemistry Sodium (137 - 145 mmol/L) 140 Potassium (3.5 - 5.1 mmol/L) 4.0 Chloride (98 - 107 mmol/L) 108 H Carbon Dioxide (22 - 30 mmol/L) 21 L Anion Gap (5 - 16) 11 BUN (7 - 17 mg/dL) 27 H Creatinine (0.5 - 1.0 mg/dL) 1.1 H Estimated GFR (>60 ml/min) 52 L BUN/Creatinine Ratio (7 - 25 %) 24.5 Lactic Acid (0.7 - 2.1 mmol/L) 2.5 H Magnesium (1.6 - 2.3 mg/dL) 1.6 Troponin I (< 0.11 ng/ml) 0.02 Hematology CBC w Diff NO MAN DIFF REQ WBC (4.8 - 10.8 /CUMM) 7.1 RBC (4.20 - 5.40 /CUMM) 4.00 L Hgb (12.0 - 16.0 G/DL) 9.4 L Hct (37 - 47 %) 29.1 L MCV (81.0 - 99.0 FL) 72.9 L MCH (27.0 - 31.0 PG) 23.6 L RDW (11.5 - 14.5 %) 17.9 H Plt Count (130 - 400 /CUMM) 254 MPV (7.4 - 10.4 FL) 8.8 Gran % (42.2 - 75.2 %) 86.9 H Lymphocytes % (20.5 - 51.1 %) 10.9 L Monocytes % (1.7 - 9.3 %) 1.8 Eosinophils % (0 - 5 %) 0.1 Basophils % (0.0 - 2.0 %) 0.3 Absolute Granulocytes (1.4 - 6.5 /CUMM) 6.2 Absolute Lymphocytes (1.2 - 3.4 /CUMM) 0.8 L Absolute Monocytes (0.10 - 0.60 /CUMM) 0.1 L Absolute Eosinophils (0.0 - 0.7 /CUMM) 0 Absolute Basophils (0.0 - 0.2 /CUMM) 0 PUBS MCHC (33.0 - 37.0 G/DL) 32.4 L Miscellaneous Phlebotomy Draw Site LEFT A LINE Diagnostic Data EKG Results The EKG shows sinus rhythm at a rate of 88. There is marked LVH with secondary ST-T wave abnormalities. There is left atrial enlargement. This is similar to her baseline EKG. CXR Results PATIENT: YELENA LONDON PRESENT AGE: 55 PATIENT ACCOUNT NO: [id number] : 60 LOCATION: [facility] ORDERING PHYSICIAN: FABIENNE SCHWARTZ MD SERVICE DATE: 10/28/16 EXAM TYPE: RAD - XRY-PORTABLE CHEST XRAY EXAMINATION: XR PORTABLE CHEST CLINICAL INFORMATION: Sudden cardiorespiratory arrest. Evaluate for pneumothorax. COMPARISON: None TECHNIQUE: Portable frontal view of the chest was obtained. FINDINGS: Patient has a large body habitus. Lungs are well expanded and clear. An enteric tube is seen extending to the level of the diaphragm Cardiac silhouette is moderately enlarged and hilar vessels are prominent. However, no interstitial edema, focal consolidation or pleural effusion. No pneumothorax. Anterior spinal fusion hardware is noted. IMPRESSION: 1. Cardiomegaly and vascular congestion without pulmonary edema. 2. No evidence of pneumothorax. DICTATED BY: ISAURO FREGOSO MD DATE/TIME DICTATED:10/28/161250 SHOVEL LOGGER:HANNAH DATE/TIME TRANSCRIBED:10/28/161250 CONFIDENTIAL, DO NOT COPY WITHOUT APPROPRIATE AUTHORIZATION. <Electronically signed in Other Vendor System> SIGNED BY: ISAURO FREGOSO MD 10/28/160 Other Results Echocardiogram: CONCLUSIONS This is a somewhat limited study due to patient condition. Subcostal and suprasternal notch views were not obtained. Normal size left ventricle. Severe concentric left ventricular hypertrophy. Global left ventricular systolic function at the lower limits of normal. Left ventricular ejection fraction is estimated at 55-60 %. There is mild inferior, lateral and posterior hypokinesis. Left atrial size at the upper limits of normal. Mild thickening/calcification of the mitral valve leaflets. Mild mitral annular calcification. Trace mitral regurgitation. Structurally normal aortic valve without significant sclerosis or stenosis. There is no aortic regurgitation. Unable to estimate the right ventricular systolic pressure. Gene Alston M.D. (Electronically Signed) Final Date: 28 October 2016 19:32 Assessment/Plan Assessment/Plan This patient suffered a brief cardiac arrest manifested by bradycardia and hypotension postoperatively from cervical spine surgery. This may be a marked vasovagal reaction or possibly related to her underlying sleep apnea with a respiratory arrest. It does not appear to be a cardiac event. There have been no ventricular arrhythmias, and no evidence of cardiac decompensation. Her stat echocardiogram appears to show acceptable left ventricular systolic function and a full report will be appended. For now I would recommend full ICU support. Her blood pressure should be controlled with intravenous medication for now including predominantly hydralazine and labetalol. If she stabilizes in terms of blood pressure we can resume her oral medications tomorrow. Serial EKGs and enzymes will be followed. A CTA of the chest should be done if feasible to rule out pulmonary embolism, although this is unlikely this early postoperatively. However if the patient had underlying DVT then this possibly could have been precipitated by the surgery. Thank you for the consultation. I'll be happy to follow while she is in the intensive care unit and unstable. Copies To: NASIMA CANNON,DALLAS Castro; SIVA CANNON,NILTON; LESLY CANNON,FERNIE Consult Acknowledgment - Thank you for your consult request.
--- NOTE | 2016-10-28 19:32 | ECHOCARDIOGRAM REPORT ---
YELENA LONDON Age: 55 : 1960 Gender: F Exam Date: 10/28/2016 18:20 Exam Location: [facility] Ht (in): 66 Wt (lb): 256 BSA: 2.38 BP: 158 / 71 Ordering Physician: SANGITA ALSTON MD Referring Physician: SANGITA ALSTON MD Technologist: Marisol Almaraz VERÓNICA Room Number: 112 Indications: ARRHYTHMIAS Rhythm: Sinus Technical Quality: Fair FINDINGS Left Ventricle Normal size left ventricle. Severe concentric left ventricular hypertrophy. Global left ventricular systolic function at the lower limits of normal. Left ventricular ejection fraction is estimated at 55-60 %. There is mild inferior, lateral and posterior hypokinesis. Right Ventricle The right ventricle is normal in size and function. Right Atrium The right atrium is normal in size. Left Atrium Left atrial size at the upper limits of normal. Mitral Valve Mild thickening/calcification of the mitral valve leaflets. Mild mitral annular calcification. Trace mitral regurgitation. Aortic Valve Structurally normal aortic valve without significant sclerosis or stenosis. There is no aortic regurgitation. Tricuspid Valve The tricuspid valve is normal in structure and function. There is trace tricuspid regurgitation. Unable to estimate the right ventricular systolic pressure. Pulmonic Valve Structurally normal pulmonic valve. There is no pulmonic regurgitation. Pericardium Normal pericardium without effusion. No pleural effusion. Great Vessels Normal aortic root dimension. CONCLUSIONS This is a somewhat limited study due to patient condition. Subcostal and suprasternal notch views were not obtained. Normal size left ventricle. Severe concentric left ventricular hypertrophy. Global left ventricular systolic function at the lower limits of normal. Left ventricular ejection fraction is estimated at 55-60 %. There is mild inferior, lateral and posterior hypokinesis. Left atrial size at the upper limits of normal. Mild thickening/calcification of the mitral valve leaflets. Mild mitral annular calcification. Trace mitral regurgitation. Structurally normal aortic valve without significant sclerosis or stenosis. There is no aortic regurgitation. Unable to estimate the right ventricular systolic pressure. Sangita Alston M.D. (Electronically Signed) Final Date: 28 October 2016 19:32 MEASUREMENTS (Male / Female) Normal Values 2D ECHO LV Diastolic Diameter PLAX 3.9 cm 4.2 - 5.9 / 3.9 - 5.3 cm LV Systolic Diameter PLAX 2.9 cm 2.1 - 4.0 cm LV Fractional Shortening PLAX 25.6 % 25 - 46 % LV Ejection Fraction 2D Teich 51.1 % IVS Diastolic Thickness 2.2 cm LVPW Diastolic Thickness 2.2 cm LV Relative Wall Thickness 1.1 LVOT Diameter 2.0 cm Aortic Root Diameter 3.2 cm LA Systolic Diameter LX 3.8 cm 3.0 - 4.0 / 2.7 - 3.8 cm LA Volume 35.0 cm 18 - 58 / 22 - 52 cm Ascending Aorta Diameter 3.5 cm DOPPLER AV Peak Velocity 107.0 cm/s AV Peak Gradient 4.6 mmHg AV Mean Velocity 84.1 cm/s AV Mean Gradient 3.0 mmHg AV Velocity Time Integral 22.5 cm LVOT Peak Velocity 94.0 cm/s LVOT Peak Gradient 3.5 mmHg LVOT Mean Velocity 68.0 cm/s LVOT Mean Gradient 2.0 mmHg LVOT Velocity Time Integral 18.7 cm LVOT Stroke Volume 58.7 cm AV Area Cont Eq vti 2.6 cm AV Area Cont Eq pk 2.8 cm MV Peak Velocity 126.0 cm/s MV Peak Gradient 6.4 mmHg MV Mean Velocity 65.9 cm/s MV Mean Gradient 2.0 mmHg Mitral E Point Velocity 77.0 cm/s Mitral A Point Velocity 74.5 cm/s Mitral E to A Ratio 1.0 MV PHT Velocity 130.0 cm/s MV Deceleration [place] 665.0 cm/s MV Pressure Half Time 58.6 ms MV Area PHT 3.8 cm MV Deceleration Time 85.0 ms PV Peak Velocity 103.0 cm/s PV Peak Gradient 4.2 mmHg PV Mean Velocity 69.1 cm/s PV Mean Gradient 2.0 mmHg PV Velocity Time Integral 21.7 cm LV E' Lateral Velocity 3.7 cm/s Mitral E to LV E' Lateral Ratio 20.8 LV E' Septal Velocity 5.9 cm/s Mitral E to LV E' Septal Ratio 13.2
--- NOTE | 2016-10-28 20:43 | NUR ---
1630: PATIENT'S B/P NOTED TO BE CLIMBING TO SBP 180S: 180/70, HR 105 DR. SCHWARTZ AWARE, 20 MG IV LABETALOL ORDERED AND GIVEN W/ SOME IMPROVEMENT, B/P TO 160S-170S, HR 90S. PATIENT AROUSED AND C/O NAUSEA/HEAVING. GIVEN 200 MG IM TIGAN W/ NO RELIEF. INFORMED KE BRADSHAW ORDERED AND GIVEN W/ RELIEF AT 1726. GCS-13 THROUGHOUT THE SHIFT. 1900: B/P INCREASING AGAIN TO SBP 180S-190S, 25 MG IV LABETALOL GIVEN W. SOME RELIEF, SBP 160S-170S, PT DENIES COMPLAINTS, WHEAT DRAINING WELL. PATIENT REORIENTED TO ROOM. MAINTAINING SAFETY AND CLOSE MONITORING.
--- NOTE | 2016-10-28 21:07 | CT SCAN REPORT ---
EXAMINATION: CT PULMONARY EMBOLISM STUDY CLINICAL INFORMATION: Shortness of breath, tachycardia. COMPARISON: Same day chest radiograph. TECHNIQUE: Contiguous helical images of the chest were obtained following the administration of IV contrast. Multiplanar reconstructions were performed. MIPS were obtained and reviewed. DLP: 578 mGy-cm. CONTRAST: 95 mL of Optiray 350 were administered without incident. FINDINGS: The heart is enlarged, but stable. There is no pericardial effusion. The great vessels are unremarkable. Specifically, there is no pulmonary arterial filling defect. There is no CT evidence for pulmonary embolism. There are no chest wall masses. Review of lung windows demonstrates that there are neither pleural effusions nor pneumothoraces. There is bilateral lower lobe airspace disease present within the posterior basal segments. 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 There are no demonstrable pulmonary nodules. An enteric tube is in place. The tip terminates within the stomach. Limited evaluation of the upper abdomen demonstrates that the liver is of normal size and attenuation without focal lesions. Normal adrenal glands are identified. The patient is status post cholecystectomy. Surgical clips are identified. There is a 1 mm nonobstructive calculus within the upper pole of the right kidney. IMPRESSION: No CT evidence for pulmonary embolism. Bilateral lower lobe infiltrates. Enteric tube in place. Punctate nonobstructive right renal calculus.
--- NOTE | 2016-10-28 21:30 | NUR ---
ALERT AND ORIENTED IVF INFUSING ORDERED NGT TO LWS MEDICATED FOR NAUSEA WITH GOOD EFFECT SEE FLOWSHEET FOR VITALS GOOD URINE OUTPUT CRISTIN NOTED TO R NECK SMALL AMOUNT OF SEROSANGUNIOUS DRAINAGE NOTED NECK COLLAR ON NO COMPLAINTS OF TINGLING NUMBNESS OR PAIN BACK FROM CT WITHOUT INCIDENT RESTING COMFORTABLY IN BED CALL LIGHT IN REACH
--- NOTE | 2016-10-28 22:50 | Event Note ---
Event Note Event Note: Situation: Troponin elevated from 0.02 to 6.61. Background: 55 year old woman with multiple medical problems admitted to the ICU after suffering cardiac arrest s/p CPR with ROSC in PACU after undergoing C-spine surgery. Assessment/Plan: Findings discussed with neurosurgeon Dr. Haynes and institute scientist Dr. Alston and it was determined that given patients unchanged EKG and lack of symptoms the patients troponin was most likely elevated due to the CPR. CTA earlier this evening did not identify any pulmonary embolism. Anticoagulation or antiplatelets will be deferred at this time as patient is a high risk for post- operative complications and unclear clinical benefit as patient does not appear to be having any acute coronary event. Troponin/EKG will continue to be trended until they peak.
[2016-10-29] VITALS: BP 172/84
--- NOTE | 2016-10-29 01:32 | NUR ---
PT IS AWAKE AND ORIENTED X3, MOVING ALL EXTREMETIES EQUALLY, NO C/O PAIN AT THIS TIME. HR SR 80'S TO 90'S NO ECTOPY, SBP 150'S TO 170'S. 5LNC SAT 98% LUNGS CLEAR BUT DIMINISHED. NECK COLLAR IN PLACE AT ALL TIMES, DRESSING UNDERNEATH REMAINS DRY AND INTACT, CRISTIN DRAIN TO SELF SUCTION BLOODY DRAINAGE. NGT TO LWS, CLEAR RETURNS. WHEAT IN PLACE ADEQUATE CLEAR YELLOW URINE. POC DISCUSSED, PT VERBALIZED UNDERSTANDING. CALL ADDISON WITHIN REACH.
--- NOTE | 2016-10-29 03:18 | NUR ---
PT HAS HAD 10ML OF URINE OUTPUT SINCE BEGINNING OF SHIFT, 0100 CRITICAL LABS REPORTED, MD TONY REVELES AND MD DANE BRAY AWARE.
[2016-10-29 03:29] LABS: ABSOLUTE BASOPHIL COUNT 0 /CUMM (0.0-0.2); ABSOLUTE EOSINOPHIL COUNT 0 /CUMM (0.0-0.7); ABSOLUTE GRANULOCYTE CT 10.1 /CUMM (1.4-6.5); ABSOLUTE MONOCYTE COUNT 1.1 /CUMM (0.10-0.60); BASOPHIL % 0 % (0.0-2.0); EOSINOPHIL % 0.1 % (0-5); GRANULOCYTE % 82.7 % (42.2-75.2); MEAN CORPUSCULAR HGB 23.4 PG (27.0-31.0); MEAN CORPUSCULAR HGB CONC 31.6 G/DL (33.0-37.0); MEAN CORPUSCULAR VOLUME 74.2 FL (81.0-99.0); MEAN PLATELET VOLUME 8.6 FL (7.4-10.4); PLATELET COUNT 280 /CUMM (130-400); RBC DISTRIBUTION WIDTH 18.4 % (11.5-14.5); RED BLOOD CELL CT 4.17 /CUMM (4.20-5.40)
[2016-10-29 03:33] LABS: WHITE BLOOD CELL COUNT 12.2 /CUMM (4.8-10.8)
--- NOTE | 2016-10-29 06:02 | PN- Neurosurgical ---
Subjective Subjective: Patient presently without complaints. Pain is controlled. No difficulty speaking or swallowing. No difficulty breathing. No chest pain. Has ngt, no reported nausea, states throat is sore. Objective Vital Signs and I&Os Vital Signs Date Time Temp Pulse Resp B/P B/P Pulse O2 O2 Flow FiO2 Mean Ox Delivery Rate 10/29 0400 100 Nasal 5.0L Cannula 10/29 0000 97 Nasal 5.0L Cannula 10/29 0000 97.8 94 15 172/84 97 Nasal 5.0L Cannula 10/28 2248 92 194/78 10/28 2000 99 Nasal 5.0L Cannula 10/28 1906 90 187/80 10/28 1646 105 180/70 10/28 1606 100 Non 100% ReBreather 10/28 1600 97.8 93 12 180/90 99 Venti Mask 50% Intake & Output 10/29 0800 10/29 0000 10/28 1600 10/28 0800 10/28 0000 10/27 1600 Intake Total 595 Output Total 1120 Balance -525 Intake, IV 595 Output, 20 Drainage Output, Urine 1100 Patient 256 lb 256 lb 247 lb Weight Weight Bed scale Bed scale Measurement Method Physical Exam: General: Alert and oriented x3, no acute distress Cardiac: RRR, s1s2 Pulm: C TA Abd: Non-tender, non-distended Extremiteis: Distal sensations intact, upper extremity hand insurance administrative assistant equal bialterally, skin warm and well perfused, bialterl calves soft and non-tender Surgical site; Anterior neck dressing dry and intact, no edema noted, no jvd noted. Hard collar i place, erika drain with serosanguinous drainge Assessment/Plan Assessment/Plan This is a 55 year old female, POD 1, s/p acdf c3-4. Post operative course complicated by cardiac arrest requiring cpr in pacu Follow serial troponins and appreciate cardiology input. Troponins are trending high, [address] Haynes and Dr. Alston are collaborating. No anticoagulation recommended at present. Will continue to follow cardiac clinical state. Continue abx until drain dc. Drain can be dc'd when less than 15 cc out put per shift Collar at all times Swallow eval in am, dc ngt can advance diet to mechanical soft if passes eval Will discuss with Dr. Haynes Core Measures/Miscellaneous Hernadez Catheter Date In: 10/28/16 Venous Thromboembolism VTE Risk Factors: Age > 40, Obesity, Surgery VTE Contraindications: Severe Spine Trauma x4 wk No Pharm VTE Prophylaxis D/T: Surgical Contraindication VTE Diagnosis: Yes VTE Type: NONE VTE Confirmed by (Test): NONE Beta Phan Is Beta Phan a Home Med? Yes If Yes, Was This Ordered Today? No (low bp) Antibiotics Is Patient on Antibiotics? Yes If Yes: prophylaxis
--- NOTE | 2016-10-29 07:51 | PN- Neurosurgical ---
Subjective Subjective: Pt without complaints this am. Denies CP, SOB, N/V or neurological complaints. Objective Vital Signs and I&Os Vital Signs Date Time Temp Pulse Resp B/P B/P Pulse O2 O2 Flow FiO2 Mean Ox Delivery Rate 10/29 0400 100 Nasal 5.0L Cannula 10/29 0000 97 Nasal 5.0L Cannula 10/29 0000 97.8 94 15 172/84 97 Nasal 5.0L Cannula 10/28 2248 92 194/78 10/28 2000 99 Nasal 5.0L Cannula 10/28 1906 90 187/80 10/28 1646 105 180/70 10/28 1606 100 Non 100% ReBreather 10/28 1600 97.8 93 12 180/90 99 Venti Mask 50% Intake & Output 10/29 0810/29 0000 10/28 1600 10/28 0800 10/28 0000 10/27 1600 Intake Total 633.8 595 Output Total 560 1120 Balance 73.8 -525 Intake, IV 633.8 595 Intake, Oral 0 Number 0 Bowel Movements Output, 10 20 Drainage Output, Urine 550 1100 Patient 116.12 kg 116.12 kg 112.037 kg Weight Weight Bed scale Bed scale Measurement Method Physical Exam: Pt AF, BP 170-190/70-80, tachy at 90-100 awake and alert voice clear without hoarseness, able to swallow 3oz water at bedside without signif difficulty neck soft without collection CRISTIN with min output since OR neuro exam with good strength and sensation in all 4 extrem, gait not tested Current Medications: Current Medications Sig/Karl Start time Last Medication Dose Route Stop Time Status Admin Acetaminophen 1,000 MG Q6P PRN 10/28 1700 AC IV Dextrose/Sodium 1,000 ML Q13H 10/28 1900 AC 10/28 Chloride IV 1903 Fentanyl Citrate 100 MCG .STK-MED ONE 10/28 1007 DC IM 10/28 1008 Furosemide 40 MG .STK-MED ONE 10/28 1229 DC IV 10/28 1230 Hydralazine HCl 20 MG .STK-MED ONE 10/28 1207 DC IM 10/28 1208 Hydromorphone HCl 2 MG .STK-MED ONE 10/28 1234 DC IM 10/28 1235 Insulin Human Regular 0 Q6 10/28 1800 AC 10/29 SC 0545 Labetalol HCl 10 MG ONCE ONE 10/28 2245 DC 10/28 IV 10/28 2246 2248 Labetalol HCl 25 MG ONCE ONE 10/28 1915 DC 10/28 IV 10/28 1916 1906 Labetalol HCl 20 MG ONCE ONE 10/28 1630 DC 10/28 IV 10/28 1631 1646 Magnesium Sulfate 1 GM ONCE ONE 10/28 1815 DC 10/28 Dextrose/Water 100 ML IV 10/28 2214 1900 Metoclopramide HCl 10 MG Q6P PRN 10/28 1715 AC 10/28 IV 1726 Morphine Sulfate 2 MG Q4P PRN 10/28 1700 AC IV Ondansetron HCl 4 MG .STK-MED ONE 10/28 1625 DC IM 10/28 1626 Ondansetron HCl 4 MG .STK-MED ONE 10/28 1229 DC IM 10/28 1230 Trimethobenzamide HCl 200 MG 4 TIMES/DAY PRN 10/28 1907 AC 10/28 IM 1959 Trimethobenzamide HCl 200 MG 4 TIMES/DAY 10/28 1800 DC IM Trimethobenzamide HCl 200 MG TID 10/28 1632 MA 10/28 IM 1647 Vancomycin HCl 1,000 MG DAILY 10/29 1000 CAN Sodium Chloride 250 ML IV Vancomycin HCl 1,500 MG Q12 10/28 2200 CAN IV Vancomycin HCl 1,500 MG Q12H 10/28 2200 AC 10/28 Sodium Chloride 250 ML IV 2221 Vancomycin HCl 1,500 MG ONCE ONE 10/28 0730 DC 10/28 Sodium Chloride 250 ML IV 10/28 0859 0800 Results Last 48 Hours of Labs: Laboratory Tests 10/29 10/29 10/28 0311 0311 1858 Chemistry Sodium (137 - 145 mmol/L) 144 Potassium (3.5 - 5.1 mmol/L) 3.4 L Chloride (98 - 107 mmol/L) 106 Carbon Dioxide (22 - 30 mmol/L) 28 Anion Gap (5 - 16) 10 BUN (7 - 17 mg/dL) 26 H Creatinine (0.5 - 1.0 mg/dL) 1.0 Estimated GFR (>60 ml/min) 58 L Glucose (65 - 99 mg/dL) 230 H Calcium (8.4 - 10.2 mg/dL) 8.5 Phosphorus (2.5 - 4.5 mg/dL) 3.4 Magnesium (1.6 - 2.3 mg/dL) 1.9 Total Bilirubin (0.2 - 1.3 mg/dL) 0.7 AST (14 - 36 U/L) 143 H ALT (9 - 52 U/L) 99 H Troponin I (< 0.11 ng/ml) 21.40 *H 6.61 *H Albumin (3.5 - 5.0 g/dL) 3.3 L Hematology CBC w Diff NO MAN DIFF REQ WBC (4.8 - 10.8 /CUMM) 12.2 H RBC (4.20 - 5.40 /CUMM) 4.17 L Hgb (12.0 - 16.0 G/DL) 9.8 L Hct (37 - 47 %) 31.0 L MCV (81.0 - 99.0 FL) 74.2 L MCH (27.0 - 31.0 PG) 23.4 L RDW (11.5 - 14.5 %) 18.4 H Plt Count (130 - 400 /CUMM) 280 MPV (7.4 - 10.4 FL) 8.6 Gran % (42.2 - 75.2 %) 82.7 H Lymphocytes % (20.5 - 51.1 %) 8.1 L Monocytes % (1.7 - 9.3 %) 9.1 Eosinophils % (0 - 5 %) 0.1 Basophils % (0.0 - 2.0 %) 0 L Absolute Granulocytes (1.4 - 6.5 /CUMM) 10.1 H Absolute Lymphocytes (1.2 - 3.4 /CUMM) 1.0 L Absolute Monocytes (0.10 - 0.60 /CUMM) 1.1 H Absolute Eosinophils (0.0 - 0.7 /CUMM) 0 Absolute Basophils (0.0 - 0.2 /CUMM) 0 PUBS MCHC (33.0 - 37.0 G/DL) 31.6 L 10/28 10/28 10/28 1700 1645 1320 Blood Gas pH (7.35 - 7.45 PH) 7.39 pCO2 (35 - 45 TORR) 42 pO2 (80 - 100 TORR) 101 H HCO3 (21 - 28 MEQ/L) 25 ABG O2 Sat (Measured) (>96.0 %) 97.0 Carboxyhemoglobin (1.5 - 5.0 %) 0.3 L O2 Concentration % 100% O2 Delivery Method KATIE MASK Chemistry Lactic Acid (0.7 - 2.1 mmol/L) 1.8 Miscellaneous Phlebotomy Draw Site [place] Toxicology Urine Opiates Screen (>2000 NG/ML) 146.00 Methadone Screen (>300 NG/ML) < 40 Barbiturate Screen (>200 NG/ML) < 60 Ur Phencyclidine Scrn (>25 NG/ML) < 6.00 Amphetamines Screen (>1000 NG/ML) < 100 U Benzodiazepines Scrn (>200 NG/ML) 374 H Urine Cocaine Screen (>300 NG/ML) < 50 Urine Cannabis Screen (>50 NG/ML) < 5.00 Urines Urine Color (YEL,AMB,STR) YEL Urine Clarity (CLEAR) CLEAR Urine pH (5.0 - 8.0) 6.0 Ur Specific [place] (1.001 - 1.035) 1.015 Urine Protein (NEG,<30 MG/DL) 30 H Urine Ketones (NEG) NEG Urine Nitrite (NEG) NEG Urine Bilirubin (NEG) NEG Urine Urobilinogen (0.1 - 1.0 EU/dl) 0.2 Ur Leukocyte Esterase (NEG) NEG Ur Microscopic SEDIMENT EXAMINED Urine RBC (0 - 5 /HPF) 25-50 H Urine WBC (0 - 2 /HPF) RARE Ur Epithelial Cells (NONE,FEW) RARE Urine Bacteria (NEG/NONE) RARE H Urine Hemoglobin (NEG) MOD H Urine Glucose (N MG/DL) 500 H 11 10/28 1225 1215 Blood Gas pH (7.35 - 7.45 PH) 7.46 H pCO2 (35 - 45 TORR) 31 L pO2 (80 - 100 TORR) 191 H HCO3 (21 - 28 MEQ/L) 22 ABG O2 Sat (Measured) (>96.0 %) 99.0 Carboxyhemoglobin (1.5 - 5.0 %) 0.3 L O2 Concentration % 100% O2 Delivery Method NRB Chemistry Sodium (137 - 145 mmol/L) 140 Potassium (3.5 - 5.1 mmol/L) 4.0 Chloride (98 - 107 mmol/L) 108 H Carbon Dioxide (22 - 30 mmol/L) 21 L Anion Gap (5 - 16) 11 BUN (7 - 17 mg/dL) 27 H Creatinine (0.5 - 1.0 mg/dL) 1.1 H Estimated GFR (>60 ml/min) 52 L BUN/Creatinine Ratio (7 - 25 %) 24.5 Lactic Acid (0.7 - 2.1 mmol/L) 2.5 H Magnesium (1.6 - 2.3 mg/dL) 1.6 Troponin I (< 0.11 ng/ml) 0.02 Hematology CBC w Diff NO MAN DIFF REQ WBC (4.8 - 10.8 /CUMM) 7.1 RBC (4.20 - 5.40 /CUMM) 4.00 L Hgb (12.0 - 16.0 G/DL) 9.4 L Hct (37 - 47 %) 29.1 L MCV (81.0 - 99.0 FL) 72.9 L MCH (27.0 - 31.0 PG) 23.6 L RDW (11.5 - 14.5 %) 17.9 H Plt Count (130 - 400 /CUMM) 254 MPV (7.4 - 10.4 FL) 8.8 Gran % (42.2 - 75.2 %) 86.9 H Lymphocytes % (20.5 - 51.1 %) 10.9 L Monocytes % (1.7 - 9.3 %) 1.8 Eosinophils % (0 - 5 %) 0.1 Basophils % (0.0 - 2.0 %) 0.3 Absolute Granulocytes (1.4 - 6.5 /CUMM) 6.2 Absolute Lymphocytes (1.2 - 3.4 /CUMM) 0.8 L Absolute Monocytes (0.10 - 0.60 /CUMM) 0.1 L Absolute Eosinophils (0.0 - 0.7 /CUMM) 0 Absolute Basophils (0.0 - 0.2 /CUMM) 0 PUBS MCHC (33.0 - 37.0 G/DL) 32.4 L Miscellaneous Phlebotomy Draw Site LEFT A LINE Recent Imaging Studies: ECHOCARDIOGRAM CONCLUSIONS: This is a somewhat limited study due to patient condition. Subcostal and suprasternal notch views were not obtained. Normal size left ventricle. Severe concentric left ventricular hypertrophy. Global left ventricular systolic function at the lower limits of normal. Left ventricular ejection fraction is estimated at 55-60 %. There is mild inferior, lateral and posterior hypokinesis. Left atrial size at the upper limits of normal. Mild thickening/calcification of the mitral valve leaflets. Mild mitral annular calcification. Trace mitral regurgitation. Structurally normal aortic valve without significant sclerosis or stenosis. There is no aortic regurgitation. Unable to estimate the right ventricular systolic pressure. Gene Alston M.D. (Electronically Signed) Final Date: 28 October 2016 Assessment/Plan Assessment/Plan Pt POD1 s/p C3/4 ACDF and now stable s/p acute decompensation in PACU. Her troponins are elevated in setting of stable EKG and no clinical cardiopulmonary symtoms presently. Cardiology has seen pt and recommends supportive care at this point. Elevated enzymes possibly related to brief chest compressions in PACU but no other evidence of cardiac ischemia. CT chest was neg for PE as well last night. She is stable from neurosurgical standpoint. Neurosurgical plan: -dc CRISTIN, dc vanco -advance diet to soft mechanical and monitor, pt should be upright to eat/drink -OOB ambulating -collar at all times -OK to dc home when stable from medical/cardiac standpoint -will need fu in 2 weeks as outpt for wound check -no driving, no lift more than 5 lbs, no exercise, OOW until fu -cover incision for showers occlusively Core Measures/Miscellaneous Hernadez Catheter Date In: 10/28/16 Venous Thromboembolism VTE Risk Factors: Age > 40, Obesity, Surgery VTE Contraindications: Severe Spine Trauma x4 wk No Pharm VTE Prophylaxis D/T: Surgical Contraindication VTE Diagnosis: Yes VTE Type: NONE VTE Confirmed by (Test): NONE Beta Phan Is Beta Phan a Home Med? Yes If Yes, Was This Ordered Today? No (low bp) Antibiotics Is Patient on Antibiotics? Yes If Yes: prophylaxis Attending MD Review Statement Attending Statement Attending MD Statement: examined this patient, discuss w/resident/PA/APPLIANCE PAINTER AND REFINISHER, discussed w/nursing
--- NOTE | 2016-10-29 07:59 | NUR ---
RECEIVED PATIENT ALERT AND ORIENTED X3. SITTING UPRIGHT IN BED. C/O THROAT SORENESS ONLY WHEN SWALLOWING. DENIES CHEST PAIN. NSR ON THE COMMUNICATION CLERK 80S-90S, SBP 160S-170S UP TO 180S. TO RESTART PO B/P MEDS. ON 5L NASAL CANNULA SATTING 95-98%. LUNGS CLEAR/DIMINISHED. ABDOMEN SOFT/NONTENDER, +BS. WHEAT IN PLACE DRAINING CLEAR/YELLOW URINE. SKIN INTACT. DRESSING TO FRONT OF NECK CDI. CRISTIN DRAIN TO SITE W/ SCANT BLOODY DRAINAGE. NGT TO R NARE DRAINING BLOOD STREAKED BILE. PATIENT TOLERATING ICE CHIPS. TO GET OOB TODAY TO CHAIR TO EAT MECHANICAL SOFT DIET AND TO GO SLOWLY PER DR. DEL REAL. NECK BRACE TO REMAIN IN PLACE. GETTING D5-1/2 NS AT 75 MLS/HR. GIVEN EMOTIONAL REASSURANCE.
[2016-10-29 08:00] VITALS: BP 194/74
--- NOTE | 2016-10-29 08:47 | Cons- CRCU ---
General Information and HPI Allergies/Medications Allergies: Coded Allergies: Penicillins (Severe, DIFFICULTY BREATHING 10/27/16) acetaminophen (From PERCOCET) (HALLUCINATIONS 10/27/16) oxycodone (From PERCOCET) (HALLUCINATIONS 10/27/16) Uncoded Allergies: MRI DYE (ALTERED MENTAL STATUS 10/29/16) Home Med List: Aspirin (Ecotrin*) 81 MG TABLET.DR 1 TAB PO DAILY PROPHO (Reported) Cholecalciferol (Vitamin D3) (Vitamin D3) 1,000 UNIT CAPSULE 1 CAP PO BID PROPHO (Reported) Cyanocobalamin (Vitamin B-12) (Vitamin B12) 2,500 MCG TABLET PROPHO (Reported) Doxazosin (Cardura) 1 MG TABLET 1 TAB PO QPM bladder (Reported) Ferrous Sulfate 325 MG (65 MG IRON) TABLET 1 TAB PO 3X PER WEEK ANEMIA ( Reported) Furosemide 40 MG TABLET 3 TAB PO DAILY HTN (Reported) Hydralazine HCl 50 MG TABLET 1.5 TAB PO BID HTN (Reported) Insulin Aspart, Recombinant (Novolog Flexpen) 100 UNIT/ML INSULN.PEN 36 UNITS SC TIDAC DIABETES (Reported) Insulin Degludec (Tresiba Flextouch U-100) 100 UNIT/ML (3 ML) INSULN.PEN 80 UNITS SC DAILY DM II (Reported) Labetalol HCl 300 MG TABLET 2 TAB PO BID HTN (Reported) Linaclotide (Linzess) 290 MCG CAPSULE 1 CAP PO AFTER DINNER CONSTIPATION ( Reported) Metformin HCl (Metformin HCl ER) 500 MG TAB.ER.24 1 TAB PO BID DIABETES ( Reported) Metolazone 5 MG TABLET 1 TAB PO EOD HTN (Reported) Rosuvastatin Calcium (Crestor) 40 MG TABLET 1 TAB PO DAILY CHOLESTEROL ( Reported) Spironolact/Hydrochlorothiazid (Spironolactone-Hctz 25-25 Tab) 25 MG-25 MG TABLET 2 TAB PO DAILY HTN (Reported) Valsartan (Diovan) 320 MG TABLET 1 TAB PO DAILY HTN (Reported) Past History Travel History Traveled to [place] past 21 day No (she find out exactly what L bhardwaj) Medical History Blood Transfusion Hx: No Cardiovascular: hypertension Respiratory: asthma Gastrointestinal: GERD, TROUBLE SWALLOWING Musculoskeletal: disk herniation, fracture Psychiatric: anxiety Endocrine: diabetes Surgical History Surgical History: laminectomy (3 YEARS AGO) Psychosocial History Where Do You Live? Home Who Do You Live With? 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
--- NOTE | 2016-10-29 10:00 | PN- Cardiology ---
Subjective Subjective: The patient is awake alert and cooperative. She is not having any significant pain. She is only complaining of soreness in her throat. She remains mild to moderately hypertensive. She remains in sinus rhythm. She's not had any arrhythmias. Her third troponin was just drawn. Her first troponin was 6.61, her second troponin was 21.4. Her EKG has not shown any evolutionary changes and just shows LVH with secondary ST-T wave abnormalities. Her echocardiogram showed preserved left ventricular systolic function but with some mild hypokinesis of the inferior posterior and lateral montero. Her CTA of the chest was negative for pulmonary embolism. Objective Vital Signs and I&Os Vital Signs Date Time Temp Pulse Resp B/P B/P Pulse O2 O2 Flow FiO2 Mean Ox Delivery Rate 10/29 0800 98 Nasal 5.0L Cannula 10/29 0400 100 Nasal 5.0L Cannula 10/29 0000 97 Nasal 5.0L Cannula 10/29 0000 97.8 94 15 172/84 97 Nasal 5.0L Cannula 10/28 2248 92 194/78 10/28 2000 99 Nasal 5.0L Cannula 10/28 1906 90 187/80 10/28 1646 105 180/70 10/28 1606 100 Non 100% ReBreather 10/28 1600 97.8 93 12 180/90 99 Venti Mask 50% Intake & Output 10/29 1600 10/29 0800 10/29 0000 10/28 1600 10/28 0800 10/28 0000 Intake Total 633.8 595 Output Total 560 1120 Balance 73.8 -525 Intake, IV 633.8 595 Intake, Oral 0 Number 0 Bowel Movements Output, 10 20 Drainage Output, Urine 550 1100 Patient 256 lb 256 lb Weight Weight Bed scale Bed scale Measurement Method Physical Exam: She is in no distress she was examined lying in bed. HEENT exam limited because of hardware Neck veins not visualized Chest clear to limited exam Heart regular rhythm no murmurs Extremities good pulses no edema Current Medications: Current Medications Sig/Karl Start time Last Medication Dose Route Stop Time Status Admin Acetaminophen 1,000 MG Q6P PRN 10/28 1700 AC IV Dextrose/Sodium 1,000 ML Q13H 10/28 1900 AC 10/28 Chloride IV 1903 Fentanyl Citrate 100 MCG .STK-MED ONE 10/28 1007 DC IM 10/28 1008 Furosemide 40 MG .STK-MED ONE 10/28 1229 DC IV 10/28 1230 Hydralazine HCl 20 MG .STK-MED ONE 10/28 1207 DC IM 10/28 1208 Hydromorphone HCl 2 MG .STK-MED ONE 10/28 1234 DC IM 10/28 1235 Insulin Human Regular 0 Q6 10/28 1800 AC 10/29 SC 0545 Labetalol HCl 10 MG ONCE ONE 10/28 2245 DC 10/28 IV 10/28 2246 2248 Labetalol HCl 25 MG ONCE ONE 10/28 1915 DC 07 IV 10/28 1916 1906 Labetalol HCl 20 MG ONCE ONE 10/28 1630 DC 07 IV 10/28 1631 1646 Magnesium Sulfate 1 GM ONCE ONE 10/28 1815 DC 10/28 Dextrose/Water 100 ML IV 10/28 2214 1900 Metoclopramide HCl 10 MG Q6P PRN 10/28 1715 AC 10/28 IV 1726 Morphine Sulfate 2 MG Q4P PRN 10/28 1700 AC IV Ondansetron HCl 4 MG .STK-MED ONE 10/28 1625 DC IM 10/28 1626 Ondansetron HCl 4 MG .STK-MED ONE 10/28 1229 DC IM 10/28 1230 Trimethobenzamide HCl 200 MG 4 TIMES/DAY PRN 10/28 1907 AC 10/28 IM 1959 Trimethobenzamide HCl 200 MG 4 TIMES/DAY 10/28 1800 DC IM Trimethobenzamide HCl 200 MG TID 10/28 1632 DC 10/28 IM 1647 Vancomycin HCl 1,000 MG DAILY 10/29 1000 CAN Sodium Chloride 250 ML IV Vancomycin HCl 1,500 MG Q12 10/28 2200 CAN IV Vancomycin HCl 1,500 MG Q12H 10/28 2200 DC 10/28 Sodium Chloride 250 ML IV 2221 Results Last 48 Hrs of Labs/Mics: Laboratory Tests 10/29/16 0910: Troponin I Pending 10/29/16310: Troponin I 21.40 *H 10/29/16 031: Anion Gap 10, Estimated GFR 58 L, Glucose 230 H, Calcium 8.5, Phosphorus 3.4, Magnesium 1.9, Total Bilirubin 0.7, AST 143 H, ALT 99 H, Albumin 3.3 L, CBC w Diff NO MAN DIFF REQ, RBC 4.17 L, MCV 74.2 L, MCH 23.4 L, RDW 18.4 H, MPV 8.6, Gran % 82.7 H, Lymphocytes % 8.1 L, Monocytes % 9.1, Eosinophils % 0.1, Basophils % 0 L, Absolute Granulocytes 10.1 H, Absolute Lymphocytes 1.0 L, Absolute Monocytes 1.1 H, Absolute Eosinophils 0, Absolute Basophils 0, PUBS MCHC 31.6 L 10/28/16 1858: Troponin I 6.61 *H 10/28/16 1700: Urine Opiates Screen 146.00, Methadone Screen < 40, Barbiturate Screen < 60, Ur Phencyclidine Scrn < 6.00, Amphetamines Screen < 100, U Benzodiazepines Scrn 374 H, Urine Cocaine Screen < 50, Urine Cannabis Screen < 5.00, Urine Color YEL, Urine Clarity CLEAR, Urine pH 6.0, Ur Specific [place] 1.015, Urine Protein 30 H, Urine Ketones NEG, Urine Nitrite NEG, Urine Bilirubin NEG, Urine Urobilinogen 0.2, Ur Leukocyte Esterase NEG, Ur Microscopic SEDIMENT EXAMINED, Urine RBC 25- 50 H, Urine WBC RARE, Ur Epithelial Cells RARE, Urine Bacteria RARE H, Urine Hemoglobin MOD H, Urine Glucose 500 H 10/28/16 1645: Lactic Acid 1.8 10/28/16 1320: pH 7.39, pCO2 42, pO2 101 H, HCO3 25, ABG O2 Sat (Measured) 97.0, Carboxyhemoglobin 0.3 L, O2 Concentration % 100%, O2 Delivery Method KATIE MASK, Phlebotomy Draw Site [place] 10/28/16 1225: Anion Gap 11, Estimated GFR 52 L, BUN/Creatinine Ratio 24.5, Lactic Acid 2.5 H , Magnesium 1.6, Troponin I 0.02, CBC w Diff NO MAN DIFF REQ, RBC 4.00 L, MCV 72.9 L, MCH 23.6 L, RDW 17.9 H, MPV 8.8, Gran % 86.9 H, Lymphocytes % 10.9 L, Monocytes % 1.8, Eosinophils % 0.1, Basophils % 0.3, Absolute Granulocytes 6.2, Absolute Lymphocytes 0.8 L, Absolute Monocytes 0.1 L, Absolute Eosinophils 0, Absolute Basophils 0, PUBS MCHC 32.4 L 10/28/16 1215: pH 7.46 H, pCO2 31 L, pO2 191 H, HCO3 22, ABG O2 Sat (Measured) 99.0, Carboxyhemoglobin 0.3 L, O2 Concentration % 100%, O2 Delivery Method NRB, Phlebotomy Draw Site LEFT A LINE Recent Imaging Studies: CTA: IMPRESSION: No CT evidence for pulmonary embolism. Bilateral lower lobe infiltrates. Enteric tube in place. Punctate nonobstructive right renal calculus. DICTATED BY: ANUM SMITH MD DATE/TIME DICTATED:10/28/162057 LABORER OPERATOR:HANNAH DATE/TIME TRANSCRIBED:10/28/162057 Assessment/Plan Assessment/Plan The patient is stable hemodynamically although mildly hypertensive. She has been getting intermittent labetalol injections for blood pressure. Her troponin continues to rise. She has had a non-ST elevation myocardial infarction likely secondary to hypotension and brief asystole and bradycardia. She has underlying marked LVH and possibly also coronary artery disease which would respond negatively to reduced perfusion even for a short period. However so for there have been no complications. The patient has been cleared for surgical discharge, however because of the myocardial insult and continued rising troponins she is not stable for discharge from a medical standpoint. I have proposed to her transfer to [place] where her regular physicians are and where she can be better served if she should develop complications. 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 I recommend restarting her on her oral antihypertensives at this time. We will hold off on antiplatelets or anticoagulants at this time as this is the preference of neurosurgery unless absolutely necessary. Continue telemetry? Yes
--- NOTE | 2016-10-29 10:30 | NUR ---
PATIENT'S NGT REMOVED PER SURGERY WITHOUT INCIDENT. PATIENT DENIES NAUSEA. TOLERATING ICE CHIPS. SCANT BROWN DRAINAGE NOTED TO CANISTER. SURGICAL EARL LEMUS AT BEDSIDE AND REMOVED THE CRISTIN DRAIN TO THE RIGHT SIDE OF NECK W/O INCIDENT. DRESSING TO FRONT OF NECK W/ SCANT BLOODY DRAINAGE.
--- NOTE | 2016-10-29 11:31 | NUR ---
Physical Therapy - Consult received, pt is s/p ant cervical fusion 10/28 with code 3 in PACU requiring CPR. Pt experienced large ME and cardiology recommends transfer to [place]. Per nursing, I mobility expected. Will not follow at this time, if status changes please reconsult.
[2016-10-29 11:44] VITALS: BP 194/74
--- NOTE | 2016-10-29 12:39 | PN- Resident CRCU ---
Subjective HPI/CRCU Issues: This morning patient is alert, awake and oriented. She is on 5 L of oxygen via nasal cannula. She offers no complaints. Still has NG tube in. Objective Vital Signs & I&O Last 8 Hrs of Vitals and I&O: Temperature 98 Pulse 105-86 Blood pressure 194-172/74-90 Pulse ox 99-100% on 5 L of oxygen via nasal cannula Exam General Appearance: well developed/nourished, no apparent distress, alert, awake , comfortable Respiratory: lungs clear Cardiovascular: tachycardia Gastrointestinal: soft, non-tender Extremities: no edema Current Medications: Current Medications Sig/Karl Start time Last Medication Dose Route Stop Time Status Admin Acetaminophen 1,000 MG Q6P PRN 10/28 1700 AC IV Dextrose/Sodium 1,000 ML Q13H 10/28 190 10/28 Chloride IV 190 Furosemide 40 MG .STK-MED ONE 10/28 1229 DC IV 10/28 1230 Hydromorphone HCl 2 MG .STK-MED ONE 10/28 1234 MA IM 10/28 1235 Insulin Human Regular 0 Q6 10/28 1800 10/29 SC 0545 Labetalol HCl 10 MG ONCE ONE 10/28 2245 DC 10/28 IV 10/28 2246 2248 Labetalol HCl 25 MG ONCE ONE 10/28 1915 DC 10/28 IV 10/28 1916 1906 Labetalol HCl 20 MG ONCE ONE 10/28 1630 DC 10/28 IV 10/28 1631 1646 Magnesium Sulfate 1 GM ONCE ONE 10/28 1815 MA 10/28 Dextrose/Water 100 ML IV 10/28 2214 1900 Metoclopramide HCl 10 MG Q6P PRN 10/28 1715 AC 10/28 IV 1726 Morphine Sulfate 2 MG Q4P PRN 10/28 1700 AC IV Ondansetron HCl 4 MG .STK-MED ONE 10/28 1625 DC IM 10/28 1626 Ondansetron HCl 4 MG .STK-MED ONE 10/28 1229 DC IM 10/28 1230 Trimethobenzamide HCl 200 MG 4 TIMES/DAY PRN 10/28 1907 10/28 IM 1959 Trimethobenzamide HCl 200 MG 4 TIMES/DAY 10/28 1800 MA IM Trimethobenzamide HCl 200 MG TID 10/28 1632 MA 10/28 IM 1647 Vancomycin HCl 1,000 MG DAILY 10/29 1000 CAN Sodium Chloride 250 ML IV Vancomycin HCl 1,500 MG Q12 10/28 2200 CAN IV Vancomycin HCl 1,500 MG Q12H 10/28 2199 DC 10/28 Sodium Chloride 250 ML IV 2220 Impression/Plan Impression/Problem List Impression: She is 55-year-old woman with past medical history of hypertension, hyperlipidemia, diabetes mellitus, obstructive sleep apnea on CPAP and gastroparesis. She also has history of prior work injury with C4-7 anterior cervical decompression and fusion several years ago. PROBLEM LIST 1. Cardiac arrest status post CPR. 2. NSTEMI. Trops trending up without EKG changes 3. Cervical Myelopathy s/o cervical discectomy and fusion today 4. Hypertension 5. History of diabetes 6. History of sleep apnea on CPAP at home PLAN * ICU monitoring * Keep SBP less than or equal to 160 * Keep HOB elevated * Keep patient nothing by mouth for now * [facility] transfer for possible cardiac cath * No antiplatelets and AC per neurosurgery * start diet today * Cont her meds with sip of water * Alps for DVT prophylaxis * Patient is full code Problem List: 1. S/P discectomy 2. NSTEMI (non-ST elevated myocardial infarction) Pain Ratin Tomorrow's Labs & Rationales: icu Plan DVT/Prophylaxis: mechanical
--- NOTE | 2016-10-29 12:39 | Discharge Summary ---
Visit Information Visit Dates Admission Date: 10/28/16 Discharge Date: 10/29/2016 Hospital Course Course Attending Physician: NASIMA CANNON,[place] Castro Primary Care Physician: FERNIE GRACE MD Other Care Providers: Dr. bland Consulting Request: Consulting Specialty: Cardiology Hospital Course: She is 55-year-old woman with past medical history of hypertension, hyperlipidemia, diabetes mellitus, obstructive sleep apnea on CPAP and gastroparesis. She also has history of prior work injury with C4-7 anterior cervical decompression and fusion several years ago. Patient is status post C3 4 anterior cervical discectomy and fusion by neurosurgeon, Dr. Haynes today. She was brought in PACU in stable condition. At 11:55 AM her oxygen saturations dropped down to 60% and her heart rate down to 20. Blood pressure was 87/42 and she went into asystole. Code 3 was called and CPR was started at 12 PM. She was given atropine 4 mg 1. ROSC was achieved after about 2 min and CPR was discontinued. She was also given Narcan 0.4 mg IV Esmolol 50 mg IV 1 and hydralazine 10 mg was given. Blood pressure came down to 195/88 heartrate 97. Her ABGs were pH 7.46, PCO2 31 and PO2 191 100% nonrebreather mask. NG tube was also placed in right nostril. She was transferred in ICU for closer monitoring. Upon coming to ICU her temperature was 97, heart rate 100, respiratory 10, blood pressure 168/88 and oxygen saturation 97% on 100% nonrebreather mask. 1. Cardiac arrest status post CPR and NSTEMI Preschool Assistant Principal, Dr. Alston was consulted. Her brief episode of cardiac arrest was considered a possible marked vasovagal reaction or possibly related to her underlying sleep apnea with a respiratory arrest or non-ST elevation myocardial infarction likely secondary to hypotension and brief asystole and bradycardia. CTA was done and there was no evidence for PE. Serial EKGs and troponins were done. EKGs did not show any acute changes as compared to previous ones. Troponins trended up to 23.40. Dr. Alston recommended to her transfer to [place] where her regular physicians were and where she can be better served if she develop complications. 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 Patient was not started on any antiplatelet or anticoagulation because of recent neurosurgery. If there is any complication and plan is to go ahead for cardiac cath then please contact neurosurgeon, Dr. Haynes [phone]. 2. Cervical Myelopathy s/o cervical discectomy and fusion Dr. Haynes and surgical team was on board. Patient was stable from neurosurgical standpoint. Her CRISTIN drain was DC'd. Collar should be in place all the times. She was okay to discharge patient home from neurosurgical standpoint. She recommended to follow-up with her after 2 weeks. No driving, no lifting more than 5 pounds, no exercising out of work until follow-up. She also recommended to cover incision for showers only. Patient was started on diet, mechanical soft. 3. Hypertension Patient has history of resistant hypertension. Initially per neurosurgery her blood pressure was Equal to or less than 160. She was given when necessary doses of IV labetalol to control her blood pressure. After starting her diet she was started back on her antihypertensive medications. 4. Swallow Eval Patient was seen by speech therapist and did not pass bedside swallow evaluation. Speech therapist recommended to give her medications with applesauce but she need formal modified barium Swallow for further swallow evaluation. Complications: cardiac arrest Allergies: Coded Allergies: Penicillins (Severe, DIFFICULTY BREATHING 10/27/16) acetaminophen (From PERCOCET) (HALLUCINATIONS 10/27/16) oxycodone (From PERCOCET) (HALLUCINATIONS 10/27/16) Uncoded Allergies: MRI DYE (ALTERED MENTAL STATUS 10/29/16) Disposition Summary Disposition Principal Diagnosis: 1. Cardiac arrest status post CPR. 2. NSTEMI 3. Cervical Myelopathy s/o cervical discectomy and fusion 4. Hypertension Additional Diagnosis: History of diabetes History of sleep apnea on CPAP at home Discharge Disposition: other general hospital Discharge Instructions General Discharge Information Code Status: Full Code Patient's Diet: Soft mechanical diet Patient's Activity: Independent Follow-Up Instructions/Appts: 1. Please follow up with your primary care provider after discharge 2. Please follow-up with your cribber after discharge 3. Please follow-up with Dr. Haynes after discharge 4. No driving, no lift more than 5 lbs, no exercise, out of work until followup 5. Cover incision for showers occlusively Medications at Discharge Discharge Medications: Stop taking the following medications: Aspirin (Ecotrin*) 81 MG TABLET. ORAL DAILY Continue taking these medications: Insulin Degludec (Tresiba Flextouch U-100) 100 UNIT/ML (3 ML) INSULN.PEN 80 Units Inject into fatty tissue DAILY Insulin Aspart, Recombinant (Novolog Flexpen) 100 UNIT/ML INSULN.PEN 36 Units Inject into fatty tissue 3 TIMES DAILY BEFORE MEALS Metformin HCl (Metformin HCl ER) 500 MG TAB.ER.24 1 Tablet ORAL TWICE DAILY Hydralazine HCl (Hydralazine HCl) 50 MG TABLET 1.5 Tablet ORAL TWICE DAILY Labetalol HCl (Labetalol HCl) 300 MG TABLET 2 Tablet ORAL TWICE DAILY Spironolact/Hydrochlorothiazid (Spironolactone-Hctz 25-25 Tab) 25 MG-25 MG TABLET 2 Tablet ORAL DAILY Furosemide (Furosemide) 40 MG TABLET 3 Tablet ORAL DAILY Rosuvastatin Calcium (Crestor) 40 MG TABLET 1 Tablet ORAL DAILY Valsartan (Diovan) 320 MG TABLET 1 Tablet ORAL DAILY Linaclotide (Linzess) 290 MCG CAPSULE 1 Capsule ORAL AFTER DINNER Ferrous Sulfate (Ferrous Sulfate) 325 MG (65 MG IRON) TABLET 1 Tablet ORAL 3X PER WEEK Cyanocobalamin (Vitamin B-12) (Vitamin B12) 2,500 MCG TABLET DAILY Cholecalciferol (Vitamin D3) (Vitamin D3) 1,000 UNIT CAPSULE 1 Capsule ORAL TWICE DAILY Doxazosin (Cardura) 1 MG TABLET 1 Tablet ORAL Every night Metolazone (Metolazone) 5 MG TABLET 1 Tablet ORAL Every other day Copies To: LESLY CANNON,FERNIE
--- NOTE | 2016-10-29 13:08 | Patient Discharge Instructions ---
Discharge Instructions General Discharge Information You were seen/treated for: 1. Cardiac arrest status post CPR. 2. NSTEMI 3. Cervical Myelopathy s/o cervical discectomy and fusion 4. Hypertension Special Instructions: 1. Please follow up with your primary care provider after discharge 2. Please follow-up with your ceo ziff davis after discharge 3. Please follow-up with Dr. Haynes after discharge 4. No driving, no lift more than 5 lbs, no exercise, out of work until followup 5. Cover incision for showers occlusively Diet Continue normal diet: Yes Activity Full Activity/No Limits: Yes Acute Coronary Syndrome Inclusion Criteria At DC or during hospital stay patient has or had the following: ACS DIAGNOSIS Yes Discharge Core Measures Meds if any: Prescribed or Continued at Discharge Aspirin No Beta-Phan Yes Statin Yes Meds if any: NOT Prescribed or Continued at Discharge Congestive Heart Failure Inclusion Criteria At DC or during hospital stay patient has or had the following: CHF DIAGNOSIS No Discharge Core Measures Meds if any: Prescribed or Continued at Discharge Meds if any: NOT Prescribed or Continued at Discharge Cerebrovascular accident Inclusion Criteria At DC or during hospital stay patient has or had the following: CVA/TIA Diagnosis No Discharge Core Measures Meds if any: Prescribed or Continued at Discharge Meds if any: NOT Prescribed or Continued at Discharge Venous thromboembolism Inclusion Criteria VTE Diagnosis No VTE Type NONE VTE Confirmed by (Test) NONE Discharge Core Measures - Per Current guidelines, there needs to be overlap - treatment for the first 5 days of Warfarin therapy. - If discharged on Warfarin prior to 5 days of - overlap therapy, the patient will need to be - assessed for post discharge needs including - *Post discharge parental anticoagulation - *Warfarin and/or parental anticoagulation education - *Follow up date to check INR post discharge At least 5 days overlap therapy as Inpatient No Meds if any: Prescribed or Continued at Discharge Note: Overlap Therapy is Warfarin and Anticoagulant Meds if any: NOT Prescribed or Continued at Discharge
[2016-10-29 16:00] VITALS: BP 170/80
[2016-10-29 16:08] VITALS: BP 156/64
--- NOTE | 2016-10-29 18:07 | NUR ---
PATIENT'S B/P ELEVATED THROUGHOUT THE AFTERNOON, INCREASING FROM 150S-170S W/ SLEEP UP TO 180S-190S WHEN AWAKE AND IN THE CHAIR. HOME ORAL B/P ORDERED. SPEECH/SWALLOW AT THE BEDSIDE AROUND 1500 ASSESSING PATIENT. PATIENT TO REMAIN NPO BUT OKAY TO HAVE ICE CHIPS, WATER, AND MEDS IN APPLESAUCE. RECOMMENDED TO GET MBS / RE-EVAL AT [facility]. CHRIS [facility] RN MADE AWARE. PATIENT GIVEN HOME B/P MEDS STAGGERED BETWEEN 3 PM (B/P 202/77) AND 430 PM (B/P 156/64) IN ORDER TO NOT GIVE ALL TO PATIENT AT ONCE. UPON PREPARING FOR DISCHARGE, PATIENT'S B/P REASSESSED MANUALLY 110/60 AND AUTOCUFF READING 107/59. PATIENT C/O NAUSEA/WEAKNESS WHICH HAPPENS AT HOME WHEN SHE TAKES HER HYDRALAZINE ON AN EMPTY STOMACH PER FAMILY AND PATIENT. PATIENT GIVEN 10 MG OF REGLAN AND SOME MILK PER PATIENT'S REQUEST. PATIENT TRANSFERRED W/ AX1 FROM THE BED TO THE STRETCHER AND DID WELL. SHE DENIED PAIN AT THIS TIME BUT STATED SHE WANTED TO LAY BACK AND GET SOME REST. UPDATED RNCHRIS AT [facility]. FAMILY TOOK PATIENT'S BELONGINGS. PATIENT D/C'D TO [facility] CCU AT [address] [facility].
== END 2016-10-29 17:20 | disposition short-term general hospital (02) | DRG 471 ==
LOC: SDA 02:16 → ENTRNSPT 13:09 → EDTRNSPTSTS 13:15 → CMPTRNSPT 13:36 → ENRESERV 14:02 → CRI 14:31
PROVIDERS: Internal Medicine Cardiovascular Disease; ADMIT Neurological Surgery
PROC: 0RG10A0 Fusion of Cervical Vertebral Joint with Interbody Fusion Device, Anterior Approach, Anterior Column, Open Approach (ICD-10-PCS; principal; 2016-10-28)
PROC: 0RJ10ZZ Inspection of Cervical Vertebral Joint, Open Approach (ICD-10-PCS; principal; 2016-10-28)
PROC: 0RT30ZZ Resection of Cervical Vertebral Disc, Open Approach (ICD-10-PCS; principal; 2016-10-28)
PROC: 4A11X4G Monitoring of Peripheral Nervous Electrical Activity, Intraoperative, External Approach (ICD-10-PCS; principal; 2016-10-28)
DX: M50.01 Cervical disc disorder with myelopathy, high cervical region (principal); I21.4 Non-ST elevation (NSTEMI) myocardial infarction; Z68.41 Body mass index [BMI] 40.0-44.9, adult; E11.43 Type 2 diabetes mellitus with diabetic autonomic (poly)neuropathy; K31.84 Gastroparesis; E11.319 Type 2 diabetes mellitus with unspecified diabetic retinopathy without macular edema; I97.191 Other postprocedural cardiac functional disturbances following other surgery; I97.121 Postprocedural cardiac arrest following other surgery; M48.02 Spinal stenosis, cervical region; E66.9 Obesity, unspecified; Y83.8 Other surgical procedures as the cause of abnormal reaction of the patient, or of later complication, without mention of misadventure at the time of the procedure; I95.81 Postprocedural hypotension; Z98.1 Arthrodesis status; Z79.4 Long term (current) use of insulin; G47.33 Obstructive sleep apnea (adult) (pediatric); I10 Essential (primary) hypertension; E78.5 Hyperlipidemia, unspecified; J45.909 Unspecified asthma, uncomplicated; K21.9 Gastro-esophageal reflux disease without esophagitis
CPT/HCPCS: CCU; 36415; 72020; 74000; 80307; 81001; 82436; 87086; 93005; 93010; 93306; J0131; J0360; J1815; J1940; J2405; J2765; J3250; J3370; J3490; J7040; J7042